=== PATIENT | female | born 1990 ===

== ENCOUNTER 2017-03-13 20:32 | Emergency (ER) | payer BC, OTHER ==
[2017-03-13 20:39] VITALS: BMI 20.5
[2017-03-13] MEDS ORDERED: PHENERGAN INJ 25 MG IV ONE ×2 (21:27→23:16)
[2017-03-13] MEDS ORDERED: DEMEROL INJ IVP ONE ×2 (21:27→22:36)
--- NOTE | 2017-03-13 21:31 | ED.ABDFE ---
HPI - Time seen Time seen: 21:28 - PCP Primary Care Physician: LOW RESENDIZ - HPI Comment HPI Comment: As below; persistent n/v/d/abd pain x 2-3 days; unable to keep anything down; went to [facility] earlier today with phenergan which helped some but returned after med wore off; longstanding type 1 dm with gastroparesis followed by Dr Knowles. - Complaint Chief Complaint:: ABD PAIN FOR A COUPLE DAYS, N/V SINCE THIS AM. HISTORY OF GASTROPORESIS. SEES FOR. - Source History Provided: Patient, Significant Other - Mode of arrival Mode of Arrival: Ambulatory - Timing Onset of Chief Complaint: 03/13/17 PMH - PMH Past Medical History: Yes Past Medical History: Diabetes, GERD Past Medical History Comment: GASTROPORESIS Past Surgical History: Yes Surgical History: Appendectomy, Past Surgical History Comment: PORT A CATH LEFT CHEST WA\\LL - Family History History of Family Medical Conditions: Yes Family Medical History: Diabetes Mellitus - Social History Does patient currently use any type of tobacco product: No Have you used tobacco products in the last 12 months: No Type of Tobacco Use: None Does any household member use tobacco: No Alcohol Use: None Do you use any recreational Drugs:: No Lives With: Spouse Lives Where: Home - infectious screening Have you traveled outside the country in the last 6 months?: No Isolation: Standard ROS - Review of Systems Constitutional: Weakness, Loss of Appetite Respiratoy: No Symptoms Reported Cardiovascular: No Symptoms Reported Gastrointestinal/Abdominal: See HPI, Abdominal Pain Neurological: No Symptoms Reported Integumentary: No Symptoms Reported PE - Vital Signs Vitals: Temperature 98.3 F Pulse Rate [Right Brachial] 118 Pulse Rate 110 Respiratory Rate 18 Blood Pressure [Left Arm] 136/85 Blood Pressure [Right Arm] 130/92 Blood Pressure 136/85 O2 Sat by Pulse Oximetry 100 - General Limitations: No Limitations General Appearance: Alert, In Distress (signficant discomfort, actively throwing up) - Head Head Exam: Normal Inspection - Chest Chest Inspection: Normal Inspection - Respiratory Respiratory Exam: Normal Lung Sounds Bilat Respiratory Exam: Bilateral Clear to Auscultation - Cardiovascular Cardiovascular Exam: Regular Rate, Normal Rhythm - Abdominal Exam Abdominal Exam: Soft, Tenderness Abdominal Tenderness: Diffuse - Rectal Rectal Exam: Deferred - Extremeties Extremities Exam: Normal Inspection Course - Reevaluation 1st: Improved (still w/"tightness" in her upper abd) ROR - Labs Reviewed Laboratory Results Reviewed?: Yes (cbc, cmp from [place] at 11am benign) - Diagnosis Discharge Problem: Diabetic gastroparesis associated with type 1 diabetes mellitus, Nausea and vomiting in adult patient - Discharge Plan Disposition: 01 HOME, SELF-CARE Condition: Stable - Follow ups/Referrals Follow ups/Referrals: NFD,None [Primary Care Provider] - 3 days DAYANA KNOWLES [STAFF PHYSICIAN] - 3 days - Instructions Instructions: Nausea and Vomiting, Adult, [id number]
[2017-03-13] MEDS ORDERED: DEMEROL INJ ONE ×2 (21:36→22:38)
[2017-03-13] MEDS ORDERED: PHENERGAN INJ 25 MG ONE ×2 (21:36→23:27)
[2017-03-13] MEDS ORDERED: NS 1000 ML 1,000 ML IV ONE ×2 (21:53→22:56)
[2017-03-13] MEDS ORDERED: NS 1000 ML 1,000 ML ONE ×2 (21:55→22:57)
[2017-03-13 23:26] VITALS: BP 130/92
== END 2017-03-14 00:18 | disposition home or self-care (01) ==
LOC: ER 20:32
DX: E11.43 Type 2 diabetes mellitus with diabetic autonomic (poly)neuropathy (principal); R11.2 Nausea with vomiting, unspecified
CPT/HCPCS: 96365; 96367; 96374; 96375; 99283; J2175; J2550

== ENCOUNTER 2017-09-03 22:52 | Inpatient (IN) | payer BC, OTHER ==
[2017-09-03 23:00] VITALS: BMI 23.8
[2017-09-03] MEDS ORDERED: ZOFRAN INJ 4 MG VIAL IVP ONE (23:10)
[2017-09-03] MEDS ORDERED: NS 1000 ML 1,000 ML IV ONE (23:11)
--- NOTE | 2017-09-03 23:11 | DR.GENAD ---
HPI - PCP Primary Care Physician: MARTÍN - Complaint/Symptoms Chief Complaint Doctors Comments: Patient presents with abdominal pain and vomitng not tolerating PO. She has a history of gastroparesis. Chief Complaint:: VOMITING SINCE TUESDAY NIGHT - Source History Provided: Patient - Mode of Arrival Mode of Arrival: Ambulatory - Timing Onset of Chief Complaint: 09/02/17 PMH - PMH Past Medical History: Yes Past Medical History: Diabetes, GERD Past Surgical History: Yes Surgical History: Appendectomy, Past Surgical History Comment: PAC - Family History History of Family Medical Conditions: Yes Family Medical History: Diabetes Mellitus - Social History Type of Tobacco Use: None Does any household member use tobacco: No Alcohol Use: None Do you use any recreational Drugs:: No Lives With: Family Lives Where: Home - infectious screening In the last 2 months have you had wt loss of >10#?: NO Have you had fever, night sweats or hemotysis?: No Have you traveled outside the country in the last 6 months?: No Isolation: Standard ROS - Review of Systems Eyes: No Symptoms Reported ENTM: No Symptoms Reported Respiratoy: No Symptoms Reported Cardiovascular: No Symptoms Reported Gastrointestinal/Abdominal: Abdominal Pain, Nausea, Vomiting Neurological: No Symptoms Reported Musculoskeletal: No Symptoms Reported Integumentary: Other (mid line surgical scar below the umbilicus) Hematologic/Lymphatic: No Symptoms Reported Endocrine: No Symptoms Reported Psychiatric: No Symptoms Reported All Other Systems: Reviewed and Negative PE - Vital Signs Vitals: Temperature 98.6 F Pulse Rate 124 Respiratory Rate 18 Blood Pressure [Left Arm] 136/85 Blood Pressure [Right Arm] 130/92 Blood Pressure 160/97 O2 Sat by Pulse Oximetry 100 - General Limitations: No Limitations General Appearance: Alert, In Distress - Head Head Exam: Normal Inspection, Atraumatic - Eyes Eye exam: Normal Appearance, PERRL, EOMI - ENT ENT Exam: Mucous Membranes Dry External Ear Exam: Normal External Inspection TM/Canal Exam: Bilateral Normal Nose Exam: Normal Nose Exam Mouth Exam: Normal Inspection Throat Exam: Normal Inspection - Neck Neck Exam: Normal Inspection - Chest Chest Inspection: Normal Inspection - Respiratory Respiratory Exam: Normal Lung Sounds Bilat Respiratory Exam: Bilateral Clear to Auscultation - Cardiovascular Cardiovascular Exam: Regular Rate, Normal Rhythm - Abdominal Exam Abdominal Exam: Normal Inspection Abdominal Tenderness: Diffuse - Extremities Extremities Exam: Normal Inspection, Full ROM - Back Back Exam: Normal Inspection, Full ROM - Neurologic Neurological Exam: Alert, Oriented X3, CN II-XII Intact - Psychiatric Psychiatric Exam: Normal Affect - Skin Skin Exam: Warm, Dry, Intact, Normal Color Course - Reevaluation 1st: Unchanged ROR - Labs Reviewed Result Diagrams: 09/03/17 23:34 09/03/17 23:34 Laboratory: WBC 7.9 X10^3/uL (3.6-10.0) 09/03/17 23:34 RBC 5.02 X10^6/uL (3.5-5.4) 09/03/17 23:34 Hgb 11.5 g/dL (12.0-16.0) L 09/03/17 23:34 Hct 36.0 % (36.0-47.0) 09/03/17 23:34 MCV 71.6 fL (80.0-100.0) L 09/03/17 23:34 MCH 22.9 pg (27.0-34.0) L 09/03/17 23:34 MCHC 31.9 g/dL (33.0-35.0) L 09/03/17 23:34 RDW 17.1 % (11.6-16.5) H 09/03/17 23:34 Plt Count 306 X10^3/uL (150.0-450.0) 09/03/17 23:34 Plt Count Comment Adequate (ADEQUATE) 09/03/17 23:34 MPV 8.2 fL (7.4-11.0) 09/03/17 23:34 Neut % 93.2 % (42.0-75.0) H 09/03/17 23:34 Lymph % 4.7 % (21.0-51.0) L 09/03/17 23:34 [place] % 1.7 % (0.0-13.0) 09/03/17 23:34 Eos % 0.0 % (0.9-2.9) L 09/03/17 23:34 Baso % 0.4 % (0.2-1.0) 09/03/17 23:34 Neut # 7.4 x10^3/uL (2.2-4.8) H 09/03/17 23:34 Lymph # 0.4 X10^3/uL (1.3-2.9) L 09/03/17 23:34 [place] # 0.1 x10^3/uL (0.3-0.8) L 09/03/17 23:34 Eos # 0.0 x10^3/uL (0.0-0.2) 09/03/17 23:34 Baso # 0.0 X10^3/uL (0.0-0.1) 09/03/17 23:34 Absolute Nucleated RBC 0.1 /100WBC 09/03/17 23:34 Total Counted 100 09/03/17 23:34 Neutrophils % (Manual) 93 % (39-76) H 09/03/17 23:34 Band Neutrophils % 1 % (0-10) 09/03/17 23:34 Lymphocytes % (Manual) 5 % (13-43) L 09/03/17 23:34 Monocytes % (Manual) 1 % (4-9) L 09/03/17 23:34 Plt Morphology Comment Normal (NORMAL) 09/03/17 23:34 RBC Morphology Abnormal (NORMAL) A 09/03/17 23:34 Hypochromasia 1+ A 09/03/17 23:34 Anisocytosis Slight A 09/03/17 23:34 Microcytosis 1+ A 09/03/17 23:34 Sodium 138 mmol/L (136-145) 09/03/17 23:34 Corrected Sodium 140 mmol/L (136-145) 09/03/17 23:34 Potassium 3.7 mmol/L (3.5-5.1) 09/03/17 23:34 Chloride 100 mmol/L (98-107) 09/03/17 23:34 Carbon Dioxide 25.5 mmol/L (21-32) 09/03/17 23:34 BUN 10 mg/dL (7-18) 09/03/17 23:34 Creatinine 0.81 mg/dL (0.55-1.02) 09/03/17 23:34 Est GFR (MDRD) Af Amer > 60 (>60) 09/03/17 23:34 Est GFR (MDRD) Non-Af > 60 (>60) 09/03/17 23:34 Glucose 195 mg/dL (65-99) H 09/03/17 23:34 Hemoglobin A1c 8.8 % (4.5-6.2) H 09/03/17 23:34 Calcium 9.0 mg/dL (8.5-10.1) 09/03/17 23:34 Corrected Calcium TNP 09/03/17 23:34 Total Bilirubin 1.00 mg/dL (0.2-1.0) 09/03/17 23:34 AST 21 Units/L (15-37) 09/03/17 23:34 ALT 21 Units/L (12-78) 09/03/17 23:34 Alkaline Phosphatase 104 Units/L (46-116) 09/03/17 23:34 Total Protein 8.2 g/dL (6.4-8.2) 09/03/17 23:34 Albumin 4.2 g/dL (3.4-5.0) 09/03/17 23:34 Globulin 4.0 g/dL (2.5-4.5) 09/03/17 23:34 Albumin/Globulin Ratio 1.1 Ratio (1.1-2.1) 09/03/17 23:34 - Diagnosis Discharge Problem: Gastroparesis due to DM - Discharge Plan Condition: Stable - Follow ups/Referrals Follow ups/Referrals: LOW RESENDIZ [Primary Care Provider] - 3 days - Instructions
[2017-09-03] MEDS ORDERED: PHENERGAN INJ 25 MG IV ONE (23:18)
[2017-09-03] MEDS ORDERED: DILAUDID INJ IVP ONE (23:37)
[2017-09-03] MEDS ORDERED: DILAUDID INJ ONE (23:38)
[2017-09-03] MEDS ORDERED: NS 1000 ML 1,000 ML ONE (23:38)
[2017-09-03] MEDS ORDERED: PHENERGAN INJ 25 MG ONE (23:38)
[2017-09-03 23:48] LABS: BASOPHILS % (AUTO) 0.4 % (0.2-1.0); HEMOGLOBIN 11.5 g/dL (12.0-16.0); LYMPHOCYTES # (AUTO) 0.4 X10^3/uL (1.3-2.9); LYMPHOCYTES % (AUTO) 4.7 % (21.0-51.0); MEAN CORPUSCULAR HEMOGLOBIN 22.9 pg (27.0-34.0); MEAN CORPUSCULAR HGB CONC 31.9 g/dL (33.0-35.0); MEAN CORPUSCULAR VOLUME 71.6 fL (80.0-100.0); MEAN PLATELET VOLUME 8.2 fL (7.4-11.0); MONOCYTES # (AUTO) 0.1 x10^3/uL (0.3-0.8); MONOCYTES % (AUTO) 1.7 % (0.0-13.0); NEUTROPHILS # (AUTO) 7.4 x10^3/uL (2.2-4.8); NEUTROPHILS % (AUTO) 93.2 % (42.0-75.0); PLATELET COUNT 306 X10^3/uL (150.0-450.0); RED BLOOD COUNT 5.02 X10^6/uL (3.5-5.4); RED CELL DISTRIBUTION WIDTH 17.1 % (11.6-16.5); WHITE BLOOD COUNT 7.9 X10^3/uL (3.6-10.0)
[2017-09-03 23:54] LABS: HEMOGLOBIN A1C 8.8 % (4.5-6.2)
[2017-09-03 23:55] LABS: ALANINE AMINOTRANSFERASE 21 Units/L (12-78); ALBUMIN 4.2 g/dL (3.4-5.0); ALKALINE PHOSPHATASE 104 Units/L (46-116); ASPARTATE AMINO TRANSFERASE 21 Units/L (15-37); BLOOD UREA NITROGEN 10 mg/dL (7-18); CARBON DIOXIDE 25.5 mmol/L (21-32); CHLORIDE 100 mmol/L (98-107); COR NA(FOR HYPERGLY) 140 mmol/L (136-145); CREATININE 0.81 mg/dL (0.55-1.02); SODIUM 138 mmol/L (136-145); TOTAL PROTEIN 8.2 g/dL (6.4-8.2); eGFR BLACK RACES > 60 (>60); eGFR NON BLACK RACES > 60 (>60)
[2017-09-04 00:07] LABS: ANISOCYTOSIS SLIGHT; BAND NEUTROPHILS % 1 % (0-10); HYPOCHROMASIA 1+; MICROCYTOSIS 1+; PLATELET MORPHOLOGY COMMENT NORMAL (NORMAL)
[2017-09-04] MEDS ORDERED: ZOFRAN INJ 4 MG VIAL IVP ONE ×2 (00:23→02:15)
[2017-09-04] MEDS ORDERED: ZOFRAN INJ 4 MG VIAL ONE (02:08)
[2017-09-04] MEDS ORDERED: DILAUDID INJ IVP ONE (02:16)
[2017-09-04] MEDS ORDERED: DILAUDID INJ ONE (02:19)
[2017-09-04] MEDS ORDERED: ZOFRAN INJ 4 MG VIAL IVP PRN ×2 (03:11→12:21)
--- NOTE | 2017-09-04 03:17 | RAD ---
AP Chest Indication: Vomiting Comparison: 01/06/2017 Findings: Stable positioning of left chest wall MediPort with its tip terminating within the upper SVC. The trachea is midline. The cardiac silhouette is unremarkable. The lungs are clear without focal i nfiltrate or effusion. The bony thorax is unremarkable. IMPRESSION: 1. No acute cardiopulmonary abnormality. Reported By:
[2017-09-04] MEDS ORDERED: NS 1000 ML 1,000 ML ONE ×2 (03:18→11:11)
[2017-09-04] MEDS: POTASSIUM CHLORIDE IV SCH ×4 (03:21→11:26)
[2017-09-04] MEDS: NS IV SCH ×4 (03:21→11:26)
[2017-09-04] MEDS ORDERED: NS 100 ML IV 100 ML IV ONE (03:44)
[2017-09-04] MEDS ORDERED: PROTONIX INJ 40 MG VIAL ONE (03:45)
[2017-09-04] MEDS: PROTONIX INJ 40 MG VIAL 80 MG in NS 100 ML IV 80 ML IV SCH ×4 (04:08→23:49)
[2017-09-04 05:39] LABS: BILIRUBIN,URINE NEGATIVE (NEGATIVE); BLOOD/HEMOGLOBIN,URINE 5+ (NEGATIVE); GLUCOSE, URINE 4+ (NEGATIVE); KETONES,URINE 4+ (NEGATIVE); LEUKOCYTE ESTERASE ,URINE NEGATIVE (NEGATIVE); NITRITES,URINE NEGATIVE (NEGATIVE); PROTEIN,URINE 2+ (NEGATIVE); UROBILINOGEN,URINE NORMAL (NORMAL)
[2017-09-04 05:46] LABS: COLOR,URINE YELLOW (YELLOW)
[2017-09-04 05:47] LABS: APPEARANCE,URINE CLEAR (CLEAR); BACTERIA,URINE TRACE /HPF (NEGATIVE); RBC,URINE 0-3 /HPF (NEGATIVE); SQUAMOUS EPITHELIAL CELL,UR FEW /HPF (NEGATIVE)
[2017-09-04] MEDS: HumuLIN R SUBCUT PRN ×3 (06:11→17:29)
[2017-09-04] MEDS: PHENERGAN INJ 25 MG IV PRN ×3 (07:32→23:50)
[2017-09-04] MEDS: DILAUDID INJ IVP PRN ×4 (07:39→21:13)
[2017-09-04] MEDS: NS 1000 ML 1,000 ML IV SCH ×3 (11:28→23:51)
[2017-09-04] MEDS ORDERED: ZOFRAN INJ 4 MG VIAL IVP SCH (14:00)
[2017-09-04] MEDS: ZOFRAN INJ 4 MG VIAL IVP PRN (21:15)
[2017-09-05] MEDS: ZOFRAN INJ 4 MG VIAL IVP PRN ×2 (01:30→05:38)
[2017-09-05] MEDS: DILAUDID INJ IVP PRN ×7 (01:40→21:22)
[2017-09-05 04:39] LABS: BASOPHILS # (AUTO) 0.1 X10^3/uL (0.0-0.1); BASOPHILS % (AUTO) 0.6 % (0.2-1.0); EOSINOPHILS % (AUTO) 0.1 % (0.9-2.9); HEMATOCRIT 28.4 % (36.0-47.0); LYMPHOCYTES # (AUTO) 1.1 X10^3/uL (1.3-2.9); LYMPHOCYTES % (AUTO) 12.6 % (21.0-51.0); MEAN CORPUSCULAR HEMOGLOBIN 22.9 pg (27.0-34.0); MEAN CORPUSCULAR HGB CONC 31.8 g/dL (33.0-35.0); MEAN PLATELET VOLUME 8.4 fL (7.4-11.0); MONOCYTES # (AUTO) 0.7 x10^3/uL (0.3-0.8); MONOCYTES % (AUTO) 7.7 % (0.0-13.0); NEUTROPHILS # (AUTO) 7.2 x10^3/uL (2.2-4.8); PLATELET COUNT 252 X10^3/uL (150.0-450.0); RED BLOOD COUNT 3.94 X10^6/uL (3.5-5.4); RED CELL DISTRIBUTION WIDTH 16.9 % (11.6-16.5); WHITE BLOOD COUNT 9.1 X10^3/uL (3.6-10.0)
[2017-09-05 04:43] LABS: ALANINE AMINOTRANSFERASE 15 Units/L (12-78); ALBUMIN 3.4 g/dL (3.4-5.0); ALKALINE PHOSPHATASE 79 Units/L (46-116); ASPARTATE AMINO TRANSFERASE 11 Units/L (15-37); BLOOD UREA NITROGEN 10 mg/dL (7-18); CALCIUM 7.9 mg/dL (8.5-10.1); CARBON DIOXIDE 25.6 mmol/L (21-32); CHLORIDE 104 mmol/L (98-107); CREATININE 0.77 mg/dL (0.55-1.02); SODIUM 139 mmol/L (136-145); TOTAL PROTEIN 6.5 g/dL (6.4-8.2); eGFR BLACK RACES > 60 (>60); eGFR NON BLACK RACES > 60 (>60)
[2017-09-05 05:19] LABS: PLATELET MORPHOLOGY COMMENT NORMAL (NORMAL)
[2017-09-05 05:20] LABS: ANISOCYTOSIS SLIGHT; HYPOCHROMASIA 1+; MICROCYTOSIS 1+
[2017-09-05] MEDS: NS 1000 ML 1,000 ML IV SCH (07:08)
[2017-09-05] MEDS ORDERED: D50W ABBOJECT SYR IV ONE ×2 (08:10→08:15)
[2017-09-05] MEDS ORDERED: MAGNESIUM SULFATE 1 GM/100 mL PREMIX 1 GM/100 ML BAG IV PRN (08:56)
[2017-09-05] MEDS ORDERED: MAG-OX TAB PO PRN (08:56)
[2017-09-05] MEDS ORDERED: K-RIDER 10 MEQ/NS 100 ML 10 MEQ/100 ML BAG IV PRN (08:56)
[2017-09-05] MEDS ORDERED: K-LYTE EFFERVESCENT PO PRN (08:56)
[2017-09-05] MEDS: PROTONIX INJ 40 MG VIAL 80 MG in NS 100 ML IV 80 ML IV SCH ×2 (10:20→22:47)
[2017-09-05] MEDS: PHENERGAN INJ 25 MG IV PRN ×2 (11:47→18:16)
[2017-09-05] MEDS ORDERED: D50W ABBOJECT SYR IV PRN ×2 (12:01→13:00)
[2017-09-05] MEDS: D5 NS 1000 ML 1,000 ML IV SCH ×2 (13:18→21:24)
[2017-09-05] MEDS: HumuLIN R SUBCUT PRN (21:21)
[2017-09-06] MEDS: PHENERGAN INJ 25 MG IV PRN ×3 (00:21→18:11)
[2017-09-06] MEDS: DILAUDID INJ IVP PRN ×7 (00:21→21:11)
[2017-09-06] MEDS: D5 NS 1000 ML 1,000 ML IV SCH ×4 (03:00→20:09)
[2017-09-06] MEDS: PROTONIX INJ 40 MG VIAL 80 MG in NS 100 ML IV 80 ML IV SCH ×3 (06:04→20:08)
[2017-09-06 06:54] LABS: ALANINE AMINOTRANSFERASE 14 Units/L (12-78); ALBUMIN 2.9 g/dL (3.4-5.0); ALKALINE PHOSPHATASE 74 Units/L (46-116); ASPARTATE AMINO TRANSFERASE 12 Units/L (15-37); BLOOD UREA NITROGEN 4 mg/dL (7-18); CALCIUM 7.8 mg/dL (8.5-10.1); CARBON DIOXIDE 25.1 mmol/L (21-32); CHLORIDE 107 mmol/L (98-107); COR CA(FOR HYPOALB) 8.7 mg/dL (8.5-10.1); CREATININE 0.66 mg/dL (0.55-1.02); MAGNESIUM 1.7 mg/dL (1.7-2.9); SODIUM 140 mmol/L (136-145); TOTAL PROTEIN 5.7 g/dL (6.4-8.2); eGFR BLACK RACES > 60 (>60); eGFR NON BLACK RACES > 60 (>60)
[2017-09-06 06:57] LABS: BASOPHILS % (AUTO) 0.5 % (0.2-1.0); EOSINOPHILS # (AUTO) 0.1 x10^3/uL (0.0-0.2); EOSINOPHILS % (AUTO) 0.8 % (0.9-2.9); HEMATOCRIT 27.1 % (36.0-47.0); HEMOGLOBIN 8.7 g/dL (12.0-16.0); LYMPHOCYTES # (AUTO) 1.1 X10^3/uL (1.3-2.9); LYMPHOCYTES % (AUTO) 15.9 % (21.0-51.0); MEAN CORPUSCULAR HEMOGLOBIN 23.1 pg (27.0-34.0); MEAN CORPUSCULAR HGB CONC 32.1 g/dL (33.0-35.0); MEAN PLATELET VOLUME 8.4 fL (7.4-11.0); MONOCYTES # (AUTO) 0.7 x10^3/uL (0.3-0.8); MONOCYTES % (AUTO) 11.3 % (0.0-13.0); NEUTROPHILS # (AUTO) 4.7 x10^3/uL (2.2-4.8); NEUTROPHILS % (AUTO) 71.5 % (42.0-75.0); PLATELET COUNT 219 X10^3/uL (150.0-450.0); RED BLOOD COUNT 3.77 X10^6/uL (3.5-5.4); RED CELL DISTRIBUTION WIDTH 16.5 % (11.6-16.5); WHITE BLOOD COUNT 6.6 X10^3/uL (3.6-10.0)
[2017-09-06 07:07] LABS: HYPOCHROMASIA 1+; PLATELET MORPHOLOGY COMMENT NORMAL (NORMAL)
--- NOTE | 2017-09-06 16:49 | DR.H&P ---
H&P - History & Physical for Day of: H&P Date: 09/04/17 - Chief Complaint Chief Complaint: nausea and vomiting, abdominal pain - Allergies Allergies/Adverse Reactions: Allergies Allergy/AdvReac Type Severity Reaction Status Date / Time meperidine [From Demerol] AdvReac Verified 09/03/17 22:54 metoclopramide [From Reglan] AdvReac Verified 09/03/17 22:54 - History of Present Illness History of Present Illness: is a 27 year old patient of Regina alford who presented to the emergency room with reports of abdominal pain, nausea, and vomiting. Patient reports symptoms started Tuesday and she has been unable to tolerate oral liquids and food since. Patient reported a history of gastroparesis and type 1 Diabetes. On Examination, lungs are clear to auscultation. Abdomen is soft, round, noted with diffuse abdominal tenderness on palpation. Normal bowel sounds noted in all quadrants. On arrival to the ER, vitals were 98.6, 124, 18, 100% RA, 160/97. A OTBS was obtained and reported 394. Labs and chest xray were obtained. Abnormal lab values include the following: Hgb 11.5, MCV 71.6, MCH 22.9, MCHC 31.9, RDW 17.1, Glucose 195, Hgb A1c 8.8, OTBS: 394, 399. Urinalysis reported: Protein 2+, Glucose 4+, Ketones 4+ , Occult Blood 5+, RBC 0-3, WBC -3, Bacteria Trace. Chest X-Ray reported: No acute cardiopulmonary abnormality. Only mild improvement in pain and nausea was noted after being given IV dilaudid, Zofran, and Phenergan in the ER. We admitted patient for further treatment and evaluation. She was started on D5NS at 150ml/hr, a protonix drip, dilaudid 2mg iv q3h prn pain, and Phenergan 12.5mg IV nausea, and Zofran 4mg IV q4h prn nausea. We planned to follow up with am labs and continue to monitor patient. - Past Medical History Past Medical History: Diabetes, GERD - Past Surgical History Surgical History: Appendectomy, Additional Surgical History: port a cath - Family History Family Medical History: Diabetes Mellitus - Social History Type of Tobacco Use: None Does any household member use tobacco: No Alcohol Use: None Drug Use: None - Medications Home Medications: Insulin R (Regular) [Humulin R] 1 unit SC ACHS 09/04/17 [History Confirmed 09/04] Oxycodone HCl Contr Release [OXYCONTIN CR 10 MG *] 10 mg PO HS 09/04/17 [ History Confirmed 09/04/17] Pantoprazole Sodium 40 mg [Protonix Tab 40 mg] 40 mg PO BID 09/04/17 [History Confirmed 09/04/17] Promethazine HCl 25 mg PO Q6HR PRN 09/04/17 [History Confirmed 09/04/17] - Review of Systems Constitutional: Weakness. denies: Fever, Chills, Sweats Eyes: No Symptoms Reported. denies: Pain, Vision Change ENT: No Symptoms Reported. denies: Ear Pain, Ear Discharge, Nose Pain, Nose Discharge, Throat Swelling Respiratory: No Symptoms Reported. denies: Cough, Shortness of Breath, Hemoptysis, Sputum, Wheezing Cardiovascular: No Symptoms Reported. denies: Chest Pain, Palpitations, Edema Gastrointestinal: Nausea, Vomiting, Abdominal Pain. denies: Diarrhea, Melena, Hematochezia Genitourinary: No Symptoms Reported. denies: Dysuria, Incontinence, Hematuria, Retention Musculoskeletal: No Symptoms Reported Skin: No Symptoms Reported. denies: Jaundice, Bruising, Wound, Ecchymosis Neurological: Weakness. denies: Numbness, Confusion, Seizures - Physical Exam Vital Signs: Temperature 98.2 F Pulse Rate [Right Brachial] 97 Pulse Rate [Left] 101 Pulse Rate 124 Respiratory Rate 16 Blood Pressure [Left Arm] 116/75 Blood Pressure [Right Arm] 109/76 Blood Pressure 160/97 O2 Sat by Pulse Oximetry 98 Oriented: Normal. negative: Not Oriented, Unable to test Eyes: Normal. negative: Blurred Vision, Diplopia, Discharge, Photophobia Ear: Normal. negative: Swelling, Ecchymosis, Hemotypanum Nose: Normal. negative: Injected, Discharge Throat: Normal. negative: Tonsillar Hypertrophy Respiratory: Clear Throughout Cardiovascular: Normal, Tachycardia. negative: Murmur, Edema : Normal. negative: Hematuria, Discharge, Testicular Pain, Bleeding Auscultation: Bowel Sounds: Increased Palpation: Normal Tenderness: Diffuse. negative: Rebound, Guarding, Rigidity Skin: Normal. negative: Wound, Bruising, Ecchymosis Musculoskeletal: Normal Psychiatric: Normal Mood Description: Calm Affect: Normal Speech Pattern: Clear - Assessment/Plan (1) Gastroparesis due to DM Status: Acute Plan: D5NS AT 150ML/HR, PHENERGAN 12.5MG IVP PRN, ZOFRAN 4MG IV PRN, PROTONIX DRIP, CONTINUE TO MONITOR (2) Diabetes mellitus type I Qualifiers: Diabetes mellitus complication status: with unspecified complications Qualified Code(s): E10.8 - Type 1 diabetes mellitus with unspecified complications Status: Chronic Plan: MONITOR OTBS, HUMULIN R SLIDING SCALE, CONTINUE TO MONITOR
[2017-09-06] MEDS: HumuLIN R SUBCUT PRN (17:12)
[2017-09-06] MEDS: ZOFRAN INJ 4 MG VIAL IVP PRN (21:12)
[2017-09-07] MEDS: PHENERGAN INJ 25 MG IV PRN ×3 (00:29→13:58)
[2017-09-07] MEDS: D5 NS 1000 ML 1,000 ML IV SCH ×2 (00:29→07:48)
[2017-09-07] MEDS: DILAUDID INJ IVP PRN ×4 (00:29→11:26)
[2017-09-07] MEDS: PROTONIX INJ 40 MG VIAL 80 MG in NS 100 ML IV 80 ML IV SCH ×2 (02:47→05:26)
[2017-09-07] MEDS: ZOFRAN INJ 4 MG VIAL IVP PRN (04:03)
[2017-09-07 06:34] LABS: BASOPHILS % (AUTO) 0.5 % (0.2-1.0); EOSINOPHILS # (AUTO) 0.1 x10^3/uL (0.0-0.2); EOSINOPHILS % (AUTO) 2.2 % (0.9-2.9); HEMATOCRIT 27.9 % (36.0-47.0); LYMPHOCYTES # (AUTO) 0.8 X10^3/uL (1.3-2.9); LYMPHOCYTES % (AUTO) 13.3 % (21.0-51.0); MEAN CORPUSCULAR HGB CONC 32.3 g/dL (33.0-35.0); MEAN CORPUSCULAR VOLUME 71.2 fL (80.0-100.0); MEAN PLATELET VOLUME 7.8 fL (7.4-11.0); MONOCYTES # (AUTO) 0.6 x10^3/uL (0.3-0.8); MONOCYTES % (AUTO) 9.5 % (0.0-13.0); NEUTROPHILS # (AUTO) 4.6 x10^3/uL (2.2-4.8); NEUTROPHILS % (AUTO) 74.5 % (42.0-75.0); PLATELET COUNT 221 X10^3/uL (150.0-450.0); RED BLOOD COUNT 3.91 X10^6/uL (3.5-5.4); RED CELL DISTRIBUTION WIDTH 16.8 % (11.6-16.5); WHITE BLOOD COUNT 6.1 X10^3/uL (3.6-10.0)
[2017-09-07 06:46] LABS: ALANINE AMINOTRANSFERASE 14 Units/L (12-78); ALBUMIN 3.1 g/dL (3.4-5.0); ALKALINE PHOSPHATASE 88 Units/L (46-116); ASPARTATE AMINO TRANSFERASE 10 Units/L (15-37); BLOOD UREA NITROGEN 3 mg/dL (7-18); CALCIUM 7.6 mg/dL (8.5-10.1); CARBON DIOXIDE 29.2 mmol/L (21-32); CHLORIDE 106 mmol/L (98-107); COR CA(FOR HYPOALB) 8.3 mg/dL (8.5-10.1); CREATININE 0.57 mg/dL (0.55-1.02); SODIUM 141 mmol/L (136-145); TOTAL PROTEIN 6.2 g/dL (6.4-8.2); eGFR BLACK RACES > 60 (>60); eGFR NON BLACK RACES > 60 (>60)
[2017-09-07 06:51] LABS: HYPOCHROMASIA 1+; PLATELET MORPHOLOGY COMMENT NORMAL (NORMAL)
[2017-09-07] MEDS: HumuLIN R SUBCUT PRN (12:57)
[2017-09-07 13:15] VITALS: BP 140/88
--- NOTE | 2017-09-07 21:07 | PCM.PROG ---
Progress Note - Progress Note for Day of Date: 09/05/17 - Subjective Subjective: WAS ADMITTED FOR DIABETIC GASTROPARESIS. TODAY, SHE IS ALERT AND ORIENTED, LYING IN BED ON MORNING ROUNDS. SHE IS NOTED WITH COMPLAINTS OF NAUSEA AND DIFFUSE ABDOMINAL PAIN. ON EXAMINATION, LUNGS ARE NOTED CLEAR TO AUSCULTATION. ABDOMEN IS ROUND, SOFT, AND NOTED WITH DIFFUSE TENDERNESS TO PALPATION. PATIENT REPORTS THAT SHE HAS VOMITED SEVERAL TIMES THIS MORNING AND THROUGHOUT THE NIGHT. THERE IS BILIOUS EMESIS NOTED IN CONTAINER ON BED. HER VITAL SIGNS THIS MORNING ARE 97.8-98-18-100%-106/69. ABNORMAL LAB VALUES THIS MORNING INCLUDE THE FOLLOWING: HGB 9.0, HCT 28.4, GLUCOSE 106, CALCIUM 7.9, TOTAL BILI 1.20, AST 11. STAFF REPORTS THAT PATIENT'S BLOOD SUGAR DROPPED TO 22 AT 0800 THIS MORNING. PATIENT HAS NOT BEEN EATING DUE TO PERSISTENT NAUSEA AND VOMITING. ONE AMP OF DEXTROSE 50% WAS GIVEN. BLOOD SUGAR INCRESED TO 83. TODAY, WE WILL ALLOW PATIENT TO HAVE SIPS OF WATER AND ICE CHIPS. IF NAUSEA AND VOMITING SUBSIDES, WE WILL START PATIENT ON A SOFT DIABETIC DIET. OTHERWISE, WE WILL CONTINUE WITH CURRENT PLAN OF CARE TODAY. WE PLAN TO RECHECK AM LABS AND CONTINUE TO MONITOR PATIENT. - Past Medical Family Social History Past Med/Fam/Surg Hx: No changes since H&P Allergies: Allergies meperidine [From Demerol] Adverse Reaction (Verified 09/03/17 22:54) metoclopramide [From Reglan] Adverse Reaction (Verified 09/03/17 22:54) - Review of Systems ROS: No change since H&P - Vital Signs and I&O's Vital Signs: Temperature 98.0 F Pulse Rate [Right Brachial] 114 Pulse Rate [Left] 101 Pulse Rate 124 Respiratory Rate 16 Blood Pressure [Left Arm] 146/91 Blood Pressure [Right Arm] 140/88 Blood Pressure 160/97 O2 Sat by Pulse Oximetry 97 Intake and Output: Intake & Output 09/05/17 09/06/17 09/07/17 09/08/17 11:59 11:59 11:59 11:59 Intake Total 3411 904 2060 360 Output Total 1000 Balance 2411 904 2060 360 - Physical Exam Oriented: Normal. negative: Not Oriented, Unable to test Eyes: Normal. negative: Blurred Vision, Diplopia, Discharge, Photophobia Ear: Normal. negative: Swelling, Ecchymosis, Hemotypanum Nose: Normal. negative: Injected, Discharge Throat: Normal. negative: Tonsillar Hypertrophy Respiratory: Normal Cardiovascular: Normal, Tachycardia. negative: Murmur, Edema : Normal. negative: Hematuria, Discharge, Testicular Pain, Bleeding Auscultation: Bowel Sounds: Increased Palpation: Normal Tenderness: Diffuse. negative: Rebound, Guarding, Rigidity Skin: Normal. negative: Wound, Bruising, Ecchymosis Musculoskeletal: Normal Psychiatric: Normal Mood Description: Calm Affect: Normal Speech Pattern: Clear - Laboratory and Diagnostics Result Diagrams: 09/07/17 06:15 09/07/17 06:15 Labs: Laboratory WBC 6.1 X10^3/uL (3.6-10.0) 09/07/17 06:15 RBC 3.91 X10^6/uL (3.5-5.4) 09/07/17 06:15 Hgb 9.0 g/dL (12.0-16.0) L 09/07/17 06:15 Hct 27.9 % (36.0-47.0) L 09/07/17 06:15 MCV 71.2 fL (80.0-100.0) L 09/07/17 06:15 MCH 23.0 pg (27.0-34.0) L 09/07/17 06:15 MCHC 32.3 g/dL (33.0-35.0) L 09/07/17 06:15 RDW 16.8 % (11.6-16.5) H 09/07/17 06:15 Plt Count 221 X10^3/uL (150.0-450.0) 09/07/17 06:15 Plt Count Comment Adequate (ADEQUATE) 09/07/17 06:15 MPV 7.8 fL (7.4-11.0) 09/07/17 06:15 Neut % 74.5 % (42.0-75.0) 09/07/17 06:15 Lymph % 13.3 % (21.0-51.0) L 09/07/17 06:15 [place] % 9.5 % (0.0-13.0) 09/07/17 06:15 Eos % 2.2 % (0.9-2.9) 09/07/17 06:15 Baso % 0.5 % (0.2-1.0) 09/07/17 06:15 Neut # 4.6 x10^3/uL (2.2-4.8) 09/07/17 06:15 Lymph # 0.8 X10^3/uL (1.3-2.9) L 09/07/17 06:15 [place] # 0.6 x10^3/uL (0.3-0.8) 09/07/17 06:15 Eos # 0.1 x10^3/uL (0.0-0.2) 09/07/17 06:15 Baso # 0.0 X10^3/uL (0.0-0.1) 09/07/17 06:15 Absolute Nucleated RBC 0.0 /100WBC 09/07/17 06:15 Total Counted 100 09/03/17 23:34 Neutrophils % (Manual) 93 % (39-76) H 09/03/17 23:34 Band Neutrophils % 1 % (0-10) 09/03/17 23:34 Lymphocytes % (Manual) 5 % (13-43) L 09/03/17 23:34 Monocytes % (Manual) 1 % (4-9) L 09/03/17 23:34 Plt Morphology Comment Normal (NORMAL) 09/07/17 06:15 RBC Morphology Abnormal (NORMAL) A 09/07/17 06:15 Hypochromasia 1+ A 09/07/17 06:15 Anisocytosis Slight A 09/05/17 03:30 Microcytosis 1+ A 09/05/17 03:30 Sodium 141 mmol/L (136-145) 09/07/17 06:15 Corrected Sodium TNP 09/07/17 06:15 Potassium 3.3 mmol/L (3.5-5.1) L 09/07/17 06:15 Chloride 106 mmol/L (98-107) 09/07/17 06:15 Carbon Dioxide 29.2 mmol/L (21-32) 09/07/17 06:15 BUN 3 mg/dL (7-18) L 09/07/17 06:15 Creatinine 0.57 mg/dL (0.55-1.02) 09/07/17 06:15 Est GFR (MDRD) Af Amer > 60 (>60) 09/07/17 06:15 Est GFR (MDRD) Non-Af > 60 (>60) 09/07/17 06:15 Glucose 74 mg/dL (65-99) 09/07/17 06:15 POC Glucose (mg/dL) 272 mg/dL (65-99) H 09/07/17 13:55 Hemoglobin A1c 8.8 % (4.5-6.2) H 09/03/17 23:34 Calcium 7.6 mg/dL (8.5-10.1) L 09/07/17 06:15 Corrected Calcium 8.3 mg/dL (8.5-10.1) L 09/07/17 06:15 Magnesium 1.7 mg/dL (1.7-2.9) 09/06/17 05:49 Total Bilirubin 0.60 mg/dL (0.2-1.0) 09/07/17 06:15 AST 10 Units/L (15-37) L 09/07/17 06:15 ALT 14 Units/L (12-78) 09/07/17 06:15 Alkaline Phosphatase 88 Units/L (46-116) 09/07/17 06:15 Total Protein 6.2 g/dL (6.4-8.2) L 09/07/17 06:15 Albumin 3.1 g/dL (3.4-5.0) L 09/07/17 06:15 Globulin 3.1 g/dL (2.5-4.5) 09/07/17 06:15 Albumin/Globulin Ratio 1.0 Ratio (1.1-2.1) L 09/07/17 06:15 Specimen Type Clean catch urine 09/04/17 05:11 Urine Color Yellow (YELLOW) 09/04/17 05:11 Urine Appearance Clear (CLEAR) 09/04/17 05:11 Urine pH 6.0 (5.0 - 8.0) 09/04/17 05:11 Ur Specific [place] 1.015 (1.000-1.030) 09/04/17 05:11 Urine Protein 2+ (NEGATIVE) 09/04/17 05:11 Urine Glucose (UA) 4+ (NEGATIVE) 09/04/17 05:11 Urine Ketones 4+ (NEGATIVE) 09/04/17 05:11 Urine Occult Blood 5+ (NEGATIVE) 09/04/17 05:11 Urine Nitrite Negative (NEGATIVE) 09/04/17 05:11 Urine Bilirubin Negative (NEGATIVE) 09/04/17 05:11 Urine Urobilinogen Normal (NORMAL) 09/04/17 05:11 Ur Leukocyte Esterase Negative (NEGATIVE) 09/04/17 05:11 Urine RBC 0-3 /HPF (NEGATIVE) 09/04/17 05:11 Urine WBC 0-3 /HPF (NEGATIVE) 09/04/17 05:11 Ur Squamous Epith Cells Few /HPF (NEGATIVE) 09/04/17 05:11 Urine Bacteria Trace /HPF (NEGATIVE) 09/04/17 05:11 Ur Culture Indicated? No/not indicated 09/04/17 05:11 - Plan (1) Gastroparesis due to DM Status: Acute Plan: D5NS AT 150ML/HR, PHENERGAN 12.5MG IVP PRN, ZOFRAN 4MG IV PRN, PROTONIX DRIP, CONTINUE TO MONITOR (2) Diabetes mellitus type I Status: Chronic Qualifiers: Diabetes mellitus complication status: with unspecified complications Qualified Code(s): E10.8 - Type 1 diabetes mellitus with unspecified complications Plan: MONITOR OTBS, HUMULIN R SLIDING SCALE, CONTINUE TO MONITOR
--- NOTE | 2017-09-07 21:20 | PCM.PROG ---
Progress Note - Progress Note for Day of Date: 09/06/17 - Subjective Subjective: WAS ADMITTED FOR DIABETIC GASTROPARESIS. TODAY, SHE IS ALERT AND ORIENTED, LYING IN BED ON MORNING ROUNDS. SHE CONTINUES WITH COMPLAINTS OF NAUSEA AND DIFFUSE ABDOMINAL PAIN. ON EXAMINATION, LUNGS ARE NOTED CLEAR TO AUSCULTATION. ABDOMEN IS ROUND, SOFT, AND NOTED WITH DIFFUSE TENDERNESS TO PALPATION. PATIENT REPORTS THAT SHE VOMITING HAS SUBSIDED, BUT SHE CONTINUES WITH NAUSEA. HER VITAL SIGNS THIS MORNING ARE 97.1-501-34-100%-140 /84. ABNORMAL LAB VALUES THIS MORNING INCLUDE THE FOLLOWING: HGB 8.7, HCT 27.1, POTASSIUM 3.4, BUN 4, GLUCOSE 104, CALCIUM 7.8, AST 12, TOTAL PROTEIN 5.7, ALBUMIN 2.9. EMR INDICATES THAT PATIENTS FINGER STICK BLOOD SUGAR HAS RANGED FROM 94-378 THROUGHOUT THE NIGHT AND THIS MORNING. PATIENT REQUEST FOR A DIET TO BE ORDERED. WE WILL ORDER A SOFT DIABETIC DIET TO START THIS MORNING. OTHERWISE, WE WILL CONTINUE WITH CURRENT PLAN OF CARE TODAY. WE PLAN TO RECHECK AM LABS AND CONTINUE TO MONITOR PATIENT. - Past Medical Family Social History Past Med/Fam/Surg Hx: No changes since H&P Allergies: Allergies meperidine [From Demerol] Adverse Reaction (Verified 09/03/17 22:54) metoclopramide [From Reglan] Adverse Reaction (Verified 09/03/17 22:54) - Review of Systems ROS: No change since H&P - Vital Signs and I&O's Vital Signs: Temperature 98.0 F Pulse Rate [Right Brachial] 114 Pulse Rate [Left] 101 Pulse Rate 124 Respiratory Rate 16 Blood Pressure [Left Arm] 146/91 Blood Pressure [Right Arm] 140/88 Blood Pressure 160/97 O2 Sat by Pulse Oximetry 97 Intake and Output: Intake & Output 09/05/17 09/06/17 09/07/17 09/08/17 11:59 11:59 11:59 11:59 Intake Total 3411 904 2060 360 Output Total 1000 Balance 2411 904 2060 360 - Physical Exam Oriented: Normal. negative: Not Oriented, Unable to test Eyes: Normal. negative: Blurred Vision, Diplopia, Discharge, Photophobia Ear: Normal. negative: Swelling, Ecchymosis, Hemotypanum Nose: Normal. negative: Injected, Discharge Throat: Normal. negative: Tonsillar Hypertrophy Respiratory: Normal Cardiovascular: Normal, Tachycardia. negative: Murmur, Edema : Normal. negative: Hematuria, Discharge, Testicular Pain, Bleeding Auscultation: Bowel Sounds: Increased Palpation: Normal Tenderness: Diffuse. negative: Rebound, Guarding, Rigidity Skin: Normal. negative: Wound, Bruising, Ecchymosis Musculoskeletal: Normal Psychiatric: Normal Mood Description: Calm Affect: Normal Speech Pattern: Clear - Laboratory and Diagnostics Result Diagrams: 09/07/17 06:15 09/07/17 06:15 Labs: Laboratory WBC 6.1 X10^3/uL (3.6-10.0) 09/07/17 06:15 RBC 3.91 X10^6/uL (3.5-5.4) 09/07/17 06:15 Hgb 9.0 g/dL (12.0-16.0) L 09/07/17 06:15 Hct 27.9 % (36.0-47.0) L 09/07/17 06:15 MCV 71.2 fL (80.0-100.0) L 09/07/17 06:15 MCH 23.0 pg (27.0-34.0) L 09/07/17 06:15 MCHC 32.3 g/dL (33.0-35.0) L 09/07/17 06:15 RDW 16.8 % (11.6-16.5) H 09/07/17 06:15 Plt Count 221 X10^3/uL (150.0-450.0) 09/07/17 06:15 Plt Count Comment Adequate (ADEQUATE) 09/07/17 06:15 MPV 7.8 fL (7.4-11.0) 09/07/17 06:15 Neut % 74.5 % (42.0-75.0) 09/07/17 06:15 Lymph % 13.3 % (21.0-51.0) L 09/07/17 06:15 [place] % 9.5 % (0.0-13.0) 09/07/17 06:15 Eos % 2.2 % (0.9-2.9) 09/07/17 06:15 Baso % 0.5 % (0.2-1.0) 09/07/17 06:15 Neut # 4.6 x10^3/uL (2.2-4.8) 09/07/17 06:15 Lymph # 0.8 X10^3/uL (1.3-2.9) L 09/07/17 06:15 [place] # 0.6 x10^3/uL (0.3-0.8) 09/07/17 06:15 Eos # 0.1 x10^3/uL (0.0-0.2) 09/07/17 06:15 Baso # 0.0 X10^3/uL (0.0-0.1) 09/07/17 06:15 Absolute Nucleated RBC 0.0 /100WBC 09/07/17 06:15 Total Counted 100 09/03/17 23:34 Neutrophils % (Manual) 93 % (39-76) H 09/03/17 23:34 Band Neutrophils % 1 % (0-10) 09/03/17 23:34 Lymphocytes % (Manual) 5 % (13-43) L 09/03/17 23:34 Monocytes % (Manual) 1 % (4-9) L 09/03/17 23:34 Plt Morphology Comment Normal (NORMAL) 09/07/17 06:15 RBC Morphology Abnormal (NORMAL) A 09/07/17 06:15 Hypochromasia 1+ A 09/07/17 06:15 Anisocytosis Slight A 09/05/17 03:30 Microcytosis 1+ A 09/05/17 03:30 Sodium 141 mmol/L (136-145) 09/07/17 06:15 Corrected Sodium TNP 09/07/17 06:15 Potassium 3.3 mmol/L (3.5-5.1) L 09/07/17 06:15 Chloride 106 mmol/L (98-107) 09/07/17 06:15 Carbon Dioxide 29.2 mmol/L (21-32) 09/07/17 06:15 BUN 3 mg/dL (7-18) L 09/07/17 06:15 Creatinine 0.57 mg/dL (0.55-1.02) 09/07/17 06:15 Est GFR (MDRD) Af Amer > 60 (>60) 09/07/17 06:15 Est GFR (MDRD) Non-Af > 60 (>60) 09/07/17 06:15 Glucose 74 mg/dL (65-99) 09/07/17 06:15 POC Glucose (mg/dL) 272 mg/dL (65-99) H 09/07/17 13:55 Hemoglobin A1c 8.8 % (4.5-6.2) H 09/03/17 23:34 Calcium 7.6 mg/dL (8.5-10.1) L 09/07/17 06:15 Corrected Calcium 8.3 mg/dL (8.5-10.1) L 09/07/17 06:15 Magnesium 1.7 mg/dL (1.7-2.9) 09/06/17 05:49 Total Bilirubin 0.60 mg/dL (0.2-1.0) 09/07/17 06:15 AST 10 Units/L (15-37) L 09/07/17 06:15 ALT 14 Units/L (12-78) 09/07/17 06:15 Alkaline Phosphatase 88 Units/L (46-116) 09/07/17 06:15 Total Protein 6.2 g/dL (6.4-8.2) L 09/07/17 06:15 Albumin 3.1 g/dL (3.4-5.0) L 09/07/17 06:15 Globulin 3.1 g/dL (2.5-4.5) 09/07/17 06:15 Albumin/Globulin Ratio 1.0 Ratio (1.1-2.1) L 09/07/17 06:15 Specimen Type Clean catch urine 09/04/17 05:11 Urine Color Yellow (YELLOW) 09/04/17 05:11 Urine Appearance Clear (CLEAR) 09/04/17 05:11 Urine pH 6.0 (5.0 - 8.0) 09/04/17 05:11 Ur Specific [place] 1.015 (1.000-1.030) 09/04/17 05:11 Urine Protein 2+ (NEGATIVE) 09/04/17 05:11 Urine Glucose (UA) 4+ (NEGATIVE) 09/04/17 05:11 Urine Ketones 4+ (NEGATIVE) 09/04/17 05:11 Urine Occult Blood 5+ (NEGATIVE) 09/04/17 05:11 Urine Nitrite Negative (NEGATIVE) 09/04/17 05:11 Urine Bilirubin Negative (NEGATIVE) 09/04/17 05:11 Urine Urobilinogen Normal (NORMAL) 09/04/17 05:11 Ur Leukocyte Esterase Negative (NEGATIVE) 09/04/17 05:11 Urine RBC 0-3 /HPF (NEGATIVE) 09/04/17 05:11 Urine WBC 0-3 /HPF (NEGATIVE) 09/04/17 05:11 Ur Squamous Epith Cells Few /HPF (NEGATIVE) 09/04/17 05:11 Urine Bacteria Trace /HPF (NEGATIVE) 09/04/17 05:11 Ur Culture Indicated? No/not indicated 09/04/17 05:11 - Plan (1) Gastroparesis due to DM Status: Acute Plan: D5NS AT 150ML/HR, PHENERGAN 12.5MG IVP PRN, ZOFRAN 4MG IV PRN, PROTONIX DRIP, CONTINUE TO MONITOR (2) Diabetes mellitus type I Status: Chronic Qualifiers: Diabetes mellitus complication status: with unspecified complications Qualified Code(s): E10.8 - Type 1 diabetes mellitus with unspecified complications Plan: MONITOR OTBS, HUMULIN R SLIDING SCALE, CONTINUE TO MONITOR
== END 2017-09-07 15:30 | disposition home or self-care (01) | DRG 74 ==
LOC: ER 22:52 → MED/SURG 09-04 02:56 → OBSVTOIN 09-05 08:30
PROVIDERS: ADMIT Internal Medicine; ATTEND Internal Medicine
DX: E10.43 Type 1 diabetes mellitus with diabetic autonomic (poly)neuropathy (principal); R11.2 Nausea with vomiting, unspecified; K31.84 Gastroparesis; E10.65 Type 1 diabetes mellitus with hyperglycemia
CPT/HCPCS: 36415; 36591; 71010; 80053; 81001; 82947; 83036; 83735; 85025; 94760; 96365; 96367; 96374; 96375; 99284; A4216; A4222; C9113; G0378; J1170; J1815; J2405; J2550; J3480; J3490

== ENCOUNTER 2017-09-22 18:41 | Inpatient (IN) | payer BC, OTHER ==
--- NOTE | 2017-09-22 19:11 | DR.GENAD ---
HPI - PCP Primary Care Physician: dar - HPI Comment HPI Comment: HISTORY DIABETIC GASTROPARESIS. DENIES FEVER OR DYSURIA.GLUCOSE WAS IN THE 200S THIS AM. NOT ABLE TO HOLD DOWN FLUIDS MEDICATIONS OR FOOD. - Complaint/Symptoms Chief Complaint Doctors Comments: ABDOMINAL PAIN, V/V. TIMES ONE DAY. - Nurses notes reviewed Nurses Notes Review: Yes - Source History Provided: Patient - Mode of Arrival Mode of Arrival: Ambulatory - Timing Onset of Chief Complaint: 09/22/17 Came on: Suddenly - Duration Duration: Constant Duration: Days - Severity Severity: Moderate PMH - PMH Past Medical History: Yes Past Medical History: Diabetes, GERD Past Surgical History: Yes Surgical History: Appendectomy, - Family History History of Family Medical Conditions: Yes Family Medical History: Diabetes Mellitus - Social History Does patient currently use any type of tobacco product: No Have you used tobacco products in the last 12 months: No Type of Tobacco Use: None Does any household member use tobacco: No Alcohol Use: None Do you use any recreational Drugs:: No Lives With: Family Lives Where: Home - infectious screening In the last 2 months have you had wt loss of >10#?: NO Have you had fever, night sweats or hemotysis?: No Have you traveled outside the country in the last 6 months?: No Isolation: Standard ROS - Review of Systems Constitutional: Weakness, Fatigue, Loss of Appetite Eyes: No Symptoms Reported. negative: Eye Pain, Discharge ENTM: No Symptoms Reported. negative: Ear Pain, Ear Discharge, Nose Discharge, Nose Congestion, Throat Pain Respiratoy: Short of Breath. negative: Productive Cough, Non-Productive Cough, Wheezing, Hemoptysis Cardiovascular: Chest Pain, Palpitations. negative: Edema Gastrointestinal/Abdominal: Abdominal Pain, Nausea, Vomiting Genitourinary: No Symptoms Reported. negative: Dysuria, Frequency, Hematuria Neurological: Headache, Weakness, Dizziness Musculoskeletal: Muscle Pain Integumentary: Dryness Hematologic/Lymphatic: No Symptoms Reported Endocrine: Increased Thirst. negative: Flushing All Other Systems: Reviewed and Negative PE - Vital Signs Vitals: Temperature 99.4 F Pulse Rate [Apical] 112 Pulse Rate [Left] 115 Pulse Rate 122 Respiratory Rate 16 Blood Pressure [Left Arm] 145/86 Blood Pressure [Right Arm] 140/88 Blood Pressure 156/106 O2 Sat by Pulse Oximetry 100 - General Limitations: No Limitations General Appearance: Alert - Head Head Exam: Normal Inspection - Eyes Eye exam: Normal Appearance - ENT ENT Exam: Normal External Ear Exam External Ear Exam: Normal External Inspection TM/Canal Exam: Bilateral Normal Nose Exam: Normal Nose Exam Mouth Exam: Normal Inspection Throat Exam: Normal Inspection - Neck Neck Exam: Normal Inspection - Chest Chest Inspection: Symmetric Chest Wall Rise - Respiratory Respiratory Exam: Normal Lung Sounds Bilat Respiratory Exam: Bilateral Clear to Auscultation - Cardiovascular Cardiovascular Exam: Regular Rate, Normal Rhythm, Bradycardia - Abdominal Exam Abdominal Exam: Normal Bowel Sounds, Soft, Tenderness Abdominal Tenderness: Diffuse, Moderate - Extremities Extremities Exam: Normal Inspection - Back Back Exam: Normal Inspection - Neurologic Neurological Exam: Alert, Oriented X3 - Psychiatric Psychiatric Exam: Normal Affect, Normal Mood - Skin Skin Exam: Dry MDM - Additional Information Additional Information Obtained From: Family - Differential Diagnosis Differential Diagnosis: ABDOMINAL PAIN, DIABETIC GASTROPARESIS Course - Treatment Treatment: IN BOLUS NS IN ED WITH NAUSEA AND PAIN MEDS. STILL NAUSEATED AND HAVING PAIN. - Reevaluation 1st: Improved (SLIGHTLY IMPROVED.) - Consultation Consultation Comments: DISCUSS PATIENT WITH DR. FRANCIS. HE WILL ADMIT PATIENT. - Education/Counseling Education/Counseling: Patient, Family, Education Educated On: Treatment, Diagnosis, Needs for Follow Up ROR - Labs Reviewed Laboratory Results Reviewed?: Yes Result Diagrams: 09/22/17 19:33 09/23/17 00:37 Laboratory: WBC 8.4 X10^3/uL (3.6-10.0) 09/22/17 19:33 RBC 5.01 X10^6/uL (3.5-5.4) 09/22/17 19:33 Hgb 11.1 g/dL (12.0-16.0) L 09/22/17 19:33 Hct 34.7 % (36.0-47.0) L 09/22/17 19:33 MCV 69.1 fL (80.0-100.0) L 09/22/17 19:33 MCH 22.2 pg (27.0-34.0) L 09/22/17 19:33 MCHC 32.1 g/dL (33.0-35.0) L 09/22/17 19:33 RDW 17.0 % (11.6-16.5) H 09/22/17 19:33 Plt Count 388 X10^3/uL (150.0-450.0) 09/22/17 19:33 Plt Count Comment Adequate (ADEQUATE) 09/22/17 19:33 MPV 7.8 fL (7.4-11.0) 09/22/17 19:33 Neut % 77.8 % (42.0-75.0) H 09/22/17 19:33 Lymph % 15.6 % (21.0-51.0) L 09/22/17 19: [place] % 5.1 % (0.0-13.0) 09/22/17 19:33 Eos % 0.3 % (0.9-2.9) L 09/22/17 19:33 Baso % 1.2 % (0.2-1.0) H 09/22/17 19: Neut # 6.6 x10^3/uL (2.2-4.8) H 09/22/17 19:33 Lymph # 1.3 X10^3/uL (1.3-2.9) 09/22/17 19:33 [place] # 0.4 x10^3/uL (0.3-0.8) 09/22/17 19:33 Eos # 0.0 x10^3/uL (0.0-0.2) 09/22/17 19:33 Baso # 0.1 X10^3/uL (0.0-0.1) 09/22/17 19:33 Absolute Nucleated RBC 0.1 /100WBC 09/22/17 19:33 Plt Morphology Comment Normal (NORMAL) 09/22/17 19:33 RBC Morphology Abnormal (NORMAL) A 09/22/17 19:33 Hypochromasia 1+ A 09/22/17 19:33 Anisocytosis Slight A 09/22/17 19:33 Microcytosis 1+ A 09/22/17 19:33 Sodium 137 mmol/L (136-145) 09/22/17 19:33 Corrected Sodium 140 mmol/L (136-145) 09/22/17 19:33 Potassium 3.7 mmol/L (3.5-5.1) 09/22/17 19:33 Chloride 100 mmol/L (98-107) 09/22/17 19:33 Carbon Dioxide 25.4 mmol/L (21-32) 09/22/17 19:33 BUN 14 mg/dL (7-18) 09/22/17 19:33 Creatinine 0.76 mg/dL (0.55-1.02) 09/22/17 19:33 Est GFR (MDRD) Af Amer > 60 (>60) 09/22/17 19:33 Est GFR (MDRD) Non-Af > 60 (>60) 09/22/17 19:33 Glucose 217 mg/dL (65-99) H 09/22/17 19:33 Calcium 9.2 mg/dL (8.5-10.1) 09/22/17 19:33 Corrected Calcium TNP 09/22/17 19:33 Total Bilirubin 1.50 mg/dL (0.2-1.0) H 09/22/17 19:33 AST 16 Units/L (15-37) 09/22/17 19:33 ALT 17 Units/L (12-78) 09/22/17 19:33 Alkaline Phosphatase 104 Units/L (46-116) 09/22/17 19:33 Creatine Kinase 48 Units/L (26-192) 09/22/17 19:33 CK-MB (CK-2) < 1.0 ng/mL (0-4.0) 09/22/17 19:33 CK/CKMB % Calc 2.1 % (<4) 09/22/17 19:33 Troponin I < 0.02 ng/mL (0-1.5) 09/22/17 19:33 Total Protein 7.8 g/dL (6.4-8.2) 09/22/17 19:33 Albumin 4.0 g/dL (3.4-5.0) 09/22/17 19:33 Globulin 3.8 g/dL (2.5-4.5) 09/22/17 19:33 Albumin/Globulin Ratio 1.1 Ratio (1.1-2.1) 09/22/17 19:33 Amylase 20 Units/L (25-115) L 09/22/17 19:33 Lipase 100 Units/L (73-393) 09/22/17 19:33 Acetone, Semi-Quant Small (NEGATIVE) H 09/22/17 19:33 - XRAY XRAY Interpreted by: Radiologist - Diagnosis Discharge Problem: Diabetic gastroparesis Abdominal pain Qualifiers: Abdominal location: generalized Qualified Code(s): R10.84 - Generalized abdominal pain - Discharge Plan Disposition: ADMITTED INPATIENT Condition: Stable - Follow ups/Referrals - Instructions
[2017-09-22] MEDS ORDERED: NS 1000 ML 1,000 ML IV ONE (19:14)
[2017-09-22] MEDS ORDERED: PHENERGAN INJ 25 MG IV ONE ×2 (19:14→20:47)
[2017-09-22] MEDS ORDERED: MORPHINE SULFATE INJ 4 MG IVP ONE (19:14)
[2017-09-22] MEDS ORDERED: MORPHINE SULFATE INJ 4 MG ONE (19:20)
[2017-09-22] MEDS ORDERED: PHENERGAN INJ 25 MG ONE ×2 (19:20→21:39)
[2017-09-22] MEDS ORDERED: NS 1000 ML 1,000 ML ONE ×2 (19:20→21:39)
[2017-09-22 19:42] LABS: BASOPHILS # (AUTO) 0.1 X10^3/uL (0.0-0.1); BASOPHILS % (AUTO) 1.2 % (0.2-1.0); EOSINOPHILS % (AUTO) 0.3 % (0.9-2.9); HEMATOCRIT 34.7 % (36.0-47.0); HEMOGLOBIN 11.1 g/dL (12.0-16.0); LYMPHOCYTES # (AUTO) 1.3 X10^3/uL (1.3-2.9); LYMPHOCYTES % (AUTO) 15.6 % (21.0-51.0); MEAN CORPUSCULAR HEMOGLOBIN 22.2 pg (27.0-34.0); MEAN CORPUSCULAR HGB CONC 32.1 g/dL (33.0-35.0); MEAN CORPUSCULAR VOLUME 69.1 fL (80.0-100.0); MEAN PLATELET VOLUME 7.8 fL (7.4-11.0); MONOCYTES # (AUTO) 0.4 x10^3/uL (0.3-0.8); MONOCYTES % (AUTO) 5.1 % (0.0-13.0); NEUTROPHILS # (AUTO) 6.6 x10^3/uL (2.2-4.8); NEUTROPHILS % (AUTO) 77.8 % (42.0-75.0); PLATELET COUNT 388 X10^3/uL (150.0-450.0); RED BLOOD COUNT 5.01 X10^6/uL (3.5-5.4); WHITE BLOOD COUNT 8.4 X10^3/uL (3.6-10.0)
[2017-09-22 19:53] LABS: ANISOCYTOSIS SLIGHT; HYPOCHROMASIA 1+; MICROCYTOSIS 1+; PLATELET MORPHOLOGY COMMENT NORMAL (NORMAL)
[2017-09-22 20:05] LABS: BLOOD UREA NITROGEN 14 mg/dL (7-18); CALCIUM 9.2 mg/dL (8.5-10.1); CARBON DIOXIDE 25.4 mmol/L (21-32); CHLORIDE 100 mmol/L (98-107); COR NA(FOR HYPERGLY) 140 mmol/L (136-145); CREATININE 0.76 mg/dL (0.55-1.02); SODIUM 137 mmol/L (136-145); TROPONIN I < 0.02 ng/mL (0-1.5); eGFR BLACK RACES > 60 (>60); eGFR NON BLACK RACES > 60 (>60)
[2017-09-22 20:17] LABS: ALANINE AMINOTRANSFERASE 17 Units/L (12-78); ALKALINE PHOSPHATASE 104 Units/L (46-116); AMYLASE 20 Units/L (25-115); ASPARTATE AMINO TRANSFERASE 16 Units/L (15-37); CKMB % 2.1 % (<4); CREATINE KINASE 48 Units/L (26-192); CREATINE KINASE MB < 1.0 ng/mL (0-4.0); LIPASE 100 Units/L (73-393); TOTAL PROTEIN 7.8 g/dL (6.4-8.2)
[2017-09-22] MEDS ORDERED: DILAUDID INJ IM ONE (20:47)
[2017-09-22] MEDS ORDERED: PEPCID 20 MG IV PREMIX* 20 MG/50 ML BAG IV ONE ×2 (20:49→21:38)
[2017-09-22] MEDS ORDERED: DILAUDID INJ IVP ONE (21:40)
[2017-09-22] MEDS ORDERED: DILAUDID INJ ONE (21:40)
[2017-09-22] MEDS ORDERED: NS 1000 ML 1,000 ML IV SCH (22:00)
--- NOTE | 2017-09-22 22:17 | RAD ---
HISTORY: Nausea, vomiting, and abdominal pain. Study: Acute abdominal series Comparison: Acute abdominal series and CT abdomen/pelvis dated January 06, 2017. Findings: The trachea is midline. The cardiac silhouette is unremarkable. The lungs are clear without focal i nfiltrate or effusion. The bony thorax is unremarkable. Left chest Port-A-Cath appears unchanged. P atient is status post median sternotomy. Flat plate and upright evaluation of the abdomen demonstrates a nonspecific/nonobstructive bowel gas pattern with air and stool to the level of the rectum. No obvious free air. No pathological soft tis rin mass or calcification can be observed. The bony structures are grossly intact. IMPRESSION: 1. No acute cardiopulmonary disease. 2. No evidence for acute abdominal pathology identified. Reported By:
[2017-09-22] MEDS: PROTONIX INJ 40 MG VIAL IVP SCH (23:12)
[2017-09-22] MEDS: NS 1000 ML 1,000 ML IV SCH (23:15)
[2017-09-23 01:08] VITALS: BMI 23.8
[2017-09-23] MEDS: HumuLIN R SUBCUT PRN (01:17)
[2017-09-23] MEDS: PHENERGAN INJ 25 MG IVP PRN ×4 (03:15→23:26)
[2017-09-23 04:29] LABS: BASOPHILS # (AUTO) 0.1 X10^3/uL (0.0-0.1); BASOPHILS % (AUTO) 0.6 % (0.2-1.0); HEMATOCRIT 32.5 % (36.0-47.0); HEMOGLOBIN 10.2 g/dL (12.0-16.0); LYMPHOCYTES # (AUTO) 0.6 X10^3/uL (1.3-2.9); LYMPHOCYTES % (AUTO) 6.1 % (21.0-51.0); MEAN CORPUSCULAR HEMOGLOBIN 21.8 pg (27.0-34.0); MEAN CORPUSCULAR HGB CONC 31.3 g/dL (33.0-35.0); MEAN CORPUSCULAR VOLUME 69.6 fL (80.0-100.0); MEAN PLATELET VOLUME 8.2 fL (7.4-11.0); MONOCYTES # (AUTO) 0.2 x10^3/uL (0.3-0.8); MONOCYTES % (AUTO) 2.3 % (0.0-13.0); NEUTROPHILS # (AUTO) 9.2 x10^3/uL (2.2-4.8); PLATELET COUNT 337 X10^3/uL (150.0-450.0); RED BLOOD COUNT 4.67 X10^6/uL (3.5-5.4); RED CELL DISTRIBUTION WIDTH 16.9 % (11.6-16.5); WHITE BLOOD COUNT 10.1 X10^3/uL (3.6-10.0)
[2017-09-23 04:35] LABS: ALANINE AMINOTRANSFERASE 16 Units/L (12-78); ALBUMIN 3.5 g/dL (3.4-5.0); ALKALINE PHOSPHATASE 97 Units/L (46-116); ASPARTATE AMINO TRANSFERASE 11 Units/L (15-37); BLOOD UREA NITROGEN 14 mg/dL (7-18); CALCIUM 8.4 mg/dL (8.5-10.1); CARBON DIOXIDE 22.3 mmol/L (21-32); CHLORIDE 104 mmol/L (98-107); COR NA(FOR HYPERGLY) 142 mmol/L (136-145); CREATININE 0.74 mg/dL (0.55-1.02); SODIUM 139 mmol/L (136-145); eGFR BLACK RACES > 60 (>60); eGFR NON BLACK RACES > 60 (>60)
[2017-09-23] MEDS: NS 1000 ML 1,000 ML IV SCH ×4 (04:56→23:30)
[2017-09-23] MEDS: TORADOL 30 MG VIAL IVP PRN ×3 (04:56→23:25)
[2017-09-23 05:39] LABS: BILIRUBIN,URINE NEGATIVE (NEGATIVE); BLOOD/HEMOGLOBIN,URINE 1+ (NEGATIVE); GLUCOSE, URINE 4+ (NEGATIVE); KETONES,URINE 3+ (NEGATIVE); LEUKOCYTE ESTERASE ,URINE NEGATIVE (NEGATIVE); NITRITES,URINE NEGATIVE (NEGATIVE); PROTEIN,URINE NEGATIVE (NEGATIVE); UROBILINOGEN,URINE NORMAL (NORMAL)
[2017-09-23 05:53] LABS: BAND NEUTROPHILS % 6 % (0-10); PLATELET MORPHOLOGY COMMENT NORMAL (NORMAL)
[2017-09-23 05:54] LABS: HYPOCHROMASIA 2+; MICROCYTOSIS 1+
[2017-09-23 06:01] LABS: AMORPHOUS SEDIMENT,UR 1+ /HPF (NEGATIVE); APPEARANCE,URINE SLIGHTLY HAZY (CLEAR); BACTERIA,URINE TRACE /HPF (NEGATIVE); COLOR,URINE YELLOW (YELLOW); RBC,URINE 0-3 /HPF (NEGATIVE); SQUAMOUS EPITHELIAL CELL,UR FEW /HPF (NEGATIVE)
[2017-09-23] MEDS ORDERED: PHARMACY CONSULT - DOSE _____ XX ONE (09:30)
[2017-09-23] MEDS: PROTONIX INJ 40 MG VIAL IVP SCH (09:46)
[2017-09-23] MEDS: ZOFRAN INJ 4 MG VIAL IVP PRN (11:37)
[2017-09-23] MEDS: [UNRECOGNIZED DRUG - OTHER] PO SCH ×4 (13:41→23:29)
[2017-09-23] MEDS ORDERED: ERYTHROMYCIN STEARATE 250 MG TAB PO SCH (15:00)
[2017-09-23] MEDS: VISTARIL PO PRN (20:18)
[2017-09-23] MEDS: SNACK - Diabetic Appropriate PO SCH (20:20)
[2017-09-24] MEDS: [UNRECOGNIZED DRUG - OTHER] PO SCH ×5 (04:37→20:45)
[2017-09-24 04:49] LABS: ABG ALLEN TEST POS; ABG HCO3 20.9 mmol/L (22-26); FRACTIONATED INSPIRED OXYGEN 21
[2017-09-24] MEDS: NS 1000 ML 1,000 ML IV SCH ×2 (05:51→08:10)
[2017-09-24 06:14] LABS: BASOPHILS # (AUTO) 0.1 X10^3/uL (0.0-0.1); BASOPHILS % (AUTO) 0.8 % (0.2-1.0); HEMATOCRIT 25.7 % (36.0-47.0); HEMOGLOBIN 8.3 g/dL (12.0-16.0); LYMPHOCYTES # (AUTO) 1.3 X10^3/uL (1.3-2.9); LYMPHOCYTES % (AUTO) 13.6 % (21.0-51.0); MEAN CORPUSCULAR HEMOGLOBIN 22.3 pg (27.0-34.0); MEAN CORPUSCULAR HGB CONC 32.1 g/dL (33.0-35.0); MEAN CORPUSCULAR VOLUME 69.3 fL (80.0-100.0); MEAN PLATELET VOLUME 8.1 fL (7.4-11.0); MONOCYTES # (AUTO) 0.4 x10^3/uL (0.3-0.8); MONOCYTES % (AUTO) 4.1 % (0.0-13.0); NEUTROPHILS # (AUTO) 7.7 x10^3/uL (2.2-4.8); NEUTROPHILS % (AUTO) 81.5 % (42.0-75.0); PLATELET COUNT 271 X10^3/uL (150.0-450.0); RED BLOOD COUNT 3.71 X10^6/uL (3.5-5.4); RED CELL DISTRIBUTION WIDTH 17.2 % (11.6-16.5); WHITE BLOOD COUNT 9.5 X10^3/uL (3.6-10.0)
[2017-09-24 06:27] LABS: ALANINE AMINOTRANSFERASE 18 Units/L (12-78); ALBUMIN 2.9 g/dL (3.4-5.0); ALKALINE PHOSPHATASE 85 Units/L (46-116); ASPARTATE AMINO TRANSFERASE 19 Units/L (15-37); BLOOD UREA NITROGEN 12 mg/dL (7-18); CALCIUM 7.8 mg/dL (8.5-10.1); CARBON DIOXIDE 21.3 mmol/L (21-32); CHLORIDE 106 mmol/L (98-107); COR CA(FOR HYPOALB) 8.7 mg/dL (8.5-10.1); COR NA(FOR HYPERGLY) 140 mmol/L (136-145); CREATININE 0.81 mg/dL (0.55-1.02); SODIUM 137 mmol/L (136-145); TOTAL PROTEIN 5.7 g/dL (6.4-8.2); eGFR BLACK RACES > 60 (>60); eGFR NON BLACK RACES > 60 (>60)
[2017-09-24 07:13] LABS: HYPOCHROMASIA 1+; PLATELET MORPHOLOGY COMMENT NORMAL (NORMAL)
[2017-09-24 07:14] LABS: MICROCYTOSIS 1+
[2017-09-24] MEDS: TORADOL 30 MG VIAL IVP PRN ×3 (08:10→22:47)
[2017-09-24] MEDS: PHENERGAN INJ 25 MG IVP PRN ×3 (08:10→22:47)
[2017-09-24] MEDS: PROTONIX INJ 40 MG VIAL IVP SCH (08:10)
[2017-09-24] MEDS: NS 1000 ML 1,000 ML with SODIUM BICARBONATE 8.4% INJ ADULT 50 ML IV SCH ×6 (14:52→21:46)
[2017-09-24] MEDS: HumuLIN R SUBCUT PRN ×2 (16:25→20:45)
[2017-09-24] MEDS: SNACK - Diabetic Appropriate PO SCH (20:45)
[2017-09-25] MEDS: [UNRECOGNIZED DRUG - OTHER] PO SCH ×6 (00:55→20:38)
[2017-09-25] MEDS: HumuLIN R SUBCUT PRN ×4 (01:07→17:03)
[2017-09-25] MEDS: VISTARIL PO PRN (02:50)
[2017-09-25] MEDS: NS 1000 ML 1,000 ML with SODIUM BICARBONATE 8.4% INJ ADULT 50 ML IV SCH ×8 (04:50→21:44)
[2017-09-25 05:06] LABS: BASOPHILS # (AUTO) 0.1 X10^3/uL (0.0-0.1); BASOPHILS % (AUTO) 2.4 % (0.2-1.0); EOSINOPHILS % (AUTO) 0.3 % (0.9-2.9); HEMATOCRIT 25.8 % (36.0-47.0); HEMOGLOBIN 8.4 g/dL (12.0-16.0); LYMPHOCYTES # (AUTO) 1.1 X10^3/uL (1.3-2.9); MEAN CORPUSCULAR HEMOGLOBIN 22.4 pg (27.0-34.0); MEAN CORPUSCULAR HGB CONC 32.6 g/dL (33.0-35.0); MEAN CORPUSCULAR VOLUME 68.8 fL (80.0-100.0); MEAN PLATELET VOLUME 8.2 fL (7.4-11.0); MONOCYTES # (AUTO) 0.4 x10^3/uL (0.3-0.8); MONOCYTES % (AUTO) 6.6 % (0.0-13.0); NEUTROPHILS # (AUTO) 4.4 x10^3/uL (2.2-4.8); NEUTROPHILS % (AUTO) 72.7 % (42.0-75.0); PLATELET COUNT 252 X10^3/uL (150.0-450.0); RED BLOOD COUNT 3.76 X10^6/uL (3.5-5.4); RED CELL DISTRIBUTION WIDTH 17.4 % (11.6-16.5); WHITE BLOOD COUNT 6.1 X10^3/uL (3.6-10.0)
[2017-09-25 05:28] LABS: ALANINE AMINOTRANSFERASE 20 Units/L (12-78); ALBUMIN 3.1 g/dL (3.4-5.0); ALKALINE PHOSPHATASE 91 Units/L (46-116); ASPARTATE AMINO TRANSFERASE 20 Units/L (15-37); BLOOD UREA NITROGEN 5 mg/dL (7-18); CALCIUM 7.7 mg/dL (8.5-10.1); CHLORIDE 104 mmol/L (98-107); COR CA(FOR HYPOALB) 8.4 mg/dL (8.5-10.1); COR NA(FOR HYPERGLY) 143 mmol/L (136-145); CREATININE 0.67 mg/dL (0.55-1.02); SODIUM 139 mmol/L (136-145); TOTAL PROTEIN 5.9 g/dL (6.4-8.2); eGFR BLACK RACES > 60 (>60); eGFR NON BLACK RACES > 60 (>60)
[2017-09-25 05:53] LABS: HYPOCHROMASIA 1+; MICROCYTOSIS 1+; PLATELET MORPHOLOGY COMMENT NORMAL (NORMAL); STOMATOCYTES PRESENT
[2017-09-25] MEDS ORDERED: K-LYTE EFFERVESCENT PO PRN (07:02)
[2017-09-25] MEDS ORDERED: MAG-OX TAB PO PRN (07:02)
[2017-09-25] MEDS ORDERED: MAGNESIUM SULFATE 1 GM/100 mL PREMIX 1 GM/100 ML BAG IV PRN (07:02)
[2017-09-25] MEDS: PROTONIX INJ 40 MG VIAL IVP SCH (08:43)
[2017-09-25] MEDS: K-RIDER 10 MEQ/NS 100 ML 10 MEQ/100 ML BAG IV PRN ×4 (08:43→11:31)
[2017-09-25] MEDS: PHENERGAN INJ 25 MG IVP PRN ×2 (11:58→19:02)
[2017-09-25] MEDS: SNACK - Diabetic Appropriate PO SCH (20:40)
[2017-09-25] MEDS ORDERED: HumuLIN R SUBCUT ONE (21:22)
--- NOTE | 2017-09-25 21:28 | PCM.PROG ---
Progress Note - Progress Note for Day of Date: 09/24/17 - Subjective Subjective: WAS ADMITTED OR ABDOMINAL PAIN AND DIABETIC GASTROPARESIS. SHE WAS HOSPITALIZED FOR THE SAME SYMPTOMS LAST WEEK. TODAY, SHE IS ALERT AND ORIENTED, LYING IN BED ON MORNING ROUNDS. SHE CONTINUES WITH COMPLAINTS OF ABDOMINAL PAIN, NAUSEA, AND VOMITING. ON EXAMINATION, LUNGS ARE CLEAR TO AUSCULTATION. ABDOMEN IS ROUND, SOFT, AND NOTED WITH MODERATE, DIFFUSE TENDERNESS. HER VITAL SIGNS THIS MORNING ARE 98.0-107-18-99%-109/66. ABNORMAL LAB VALUES INCLUDE THE FOLLOWING: HGB 8.3, HCT 25.7, GLUCOSE 112, CALCIUM 7.8, TOTAL BILI 1.60, TOTAL PROTEIN 5.7, ALBUMIN 2.9. URINE ACETONES LARGE. ARTERIAL BLOOD GAS REPORTED PH 7.410, PC02 33, P02 93, HC03 20.9, O2 SATURATION 97, BASE EXCESS -3.0. SHE HAS BEEN RECEIVING IV TORADOL FOR ABDOMINAL PAIN AND PROMETHAZINE AND ZOFRAN IV FOR NAUSEA. SHE IS NPO AT THIS TIME. TODAY, WE PLAN TO ADD AN AMP OF SODIUM BICARB TO EACH LITER OF IVF. OTHERWISE, WE WILL CONTINUE WITH CURRENT PLAN OF CARE. WE PLAN TO FOLLOW UP WITH AM LABS AND CONTINUE TO MONITOR PATIENT. - Past Medical Family Social History Past Med/Fam/Surg Hx: No changes since H&P Allergies: Allergies meperidine [From Demerol] Adverse Reaction (Verified 09/03/17 22:54) metoclopramide [From Reglan] Adverse Reaction (Verified 09/03/17 22:54) - Review of Systems ROS: No change since H&P - Vital Signs and I&O's Vital Signs: Temperature 98.1 F Pulse Rate [Right Brachial] 82 Pulse Rate [Apical] 121 Pulse Rate [Left] 80 Pulse Rate 122 Respiratory Rate 18 Blood Pressure [Left Arm] 100/63 Blood Pressure [Right Arm] 120/69 Blood Pressure 156/106 O2 Sat by Pulse Oximetry 94 Intake and Output: Intake & Output 09/23/17 09/24/17 09/25/17 09/26/17 11:59 11:59 11:59 11:59 Intake Total 1999 1950 5507 600 Output Total 800 1000 900 Balance 1999 1150 4507 -300 - Physical Exam Oriented: Normal Eyes: Normal Ear: Normal Nose: Normal Throat: Normal Respiratory: Normal Cardiovascular: Tachycardia : Normal Auscultation: Bowel Sounds: Normal Palpation: Normal Tenderness: Normal, Diffuse, Moderate Skin: Normal Musculoskeletal: Normal Psychiatric: Normal Mood Description: Calm Affect: Normal Speech Pattern: Clear, Appropriate - Laboratory and Diagnostics Result Diagrams: 09/25/17 03:45 09/25/17 21:00 Labs: Laboratory WBC 6.1 X10^3/uL (3.6-10.0) 09/25/17 03:45 RBC 3.76 X10^6/uL (3.5-5.4) 09/25/17 03:45 Hgb 8.4 g/dL (12.0-16.0) L 09/25/17 03:45 Hct 25.8 % (36.0-47.0) L 09/25/17 03:45 MCV 68.8 fL (80.0-100.0) L 09/25/17 03:45 MCH 22.4 pg (27.0-34.0) L 09/25/17 03:45 MCHC 32.6 g/dL (33.0-35.0) L 09/25/17 03:45 RDW 17.4 % (11.6-16.5) H 09/25/17 03:45 Plt Count 252 X10^3/uL (150.0-450.0) 09/25/17 03:45 Plt Count Comment Adequate (ADEQUATE) 09/25/17 03:45 MPV 8.2 fL (7.4-11.0) 09/25/17 03:45 Neut % 72.7 % (42.0-75.0) 09/25/17 03:45 Lymph % 18.0 % (21.0-51.0) L 09/25/17 03:45 [place] % 6.6 % (0.0-13.0) 09/25/17 03:45 Eos % 0.3 % (0.9-2.9) L 09/25/17 03:45 Baso % 2.4 % (0.2-1.0) H 09/25/17 03:45 Neut # 4.4 x10^3/uL (2.2-4.8) 09/25/17 03:45 Lymph # 1.1 X10^3/uL (1.3-2.9) L 09/25/17 03:45 [place] # 0.4 x10^3/uL (0.3-0.8) 09/25/17 03:45 Eos # 0.0 x10^3/uL (0.0-0.2) 09/25/17 03:45 Baso # 0.1 X10^3/uL (0.0-0.1) 09/25/17 03:45 Absolute Nucleated RBC 0.1 /100WBC 09/25/17 03:45 Total Counted 100 09/23/17 03:39 Neutrophils % (Manual) 88 % (39-76) H 09/23/17 03:39 Band Neutrophils % 6 % (0-10) 09/23/17 03:39 Lymphocytes % (Manual) 5 % (13-43) L 09/23/17 03:39 Monocytes % (Manual) 1 % (4-9) L 09/23/17 03:39 Plt Morphology Comment Normal (NORMAL) 09/25/17 03:45 RBC Morphology Abnormal (NORMAL) A 09/25/17 03:45 Hypochromasia 1+ A 09/25/17 03:45 Anisocytosis Slight A 09/22/17 19:33 Microcytosis 1+ A 09/25/17 03:45 Stomatocytes Present 09/25/17 03:45 Sample Site Rr 09/24/17 04:34 ABG pH 7.410 (7.35-7.45) 09/24/17 04:34 ABG pCO2 33.0 mmHg (35.0-45.0) L 09/24/17 04:34 ABG pO2 93.0 mmHg (80.0-100.0) 09/24/17 04:34 ABG HCO3 20.9 mmol/L (22-26) L 09/24/17 04:34 ABG O2 Saturation 97.0 % (90-100) 09/24/17 04:34 ABG Base Excess -3.0 mmol/L (-2.0-2.0) L 09/24/17 04:34 Jian Test Pos 09/24/17 04:34 A-a Gradient 15.0 mmHg 09/24/17 04:34 FiO2 21 09/24/17 04:34 Blood Gas Comments Stephen well ae 09/24/17 04:34 Sodium 139 mmol/L (136-145) 09/25/17 03:45 Corrected Sodium 143 mmol/L (136-145) 09/25/17 03:45 Potassium 3.4 mmol/L (3.5-5.1) L 09/25/17 15:08 Chloride 104 mmol/L (98-107) 09/25/17 03:45 Carbon Dioxide 27.0 mmol/L (21-32) 09/25/17 03:45 BUN 5 mg/dL (7-18) L 09/25/17 03:45 Creatinine 0.67 mg/dL (0.55-1.02) 09/25/17 03:45 Est GFR (MDRD) Af Amer > 60 (>60) 09/25/17 03:45 Est GFR (MDRD) Non-Af > 60 (>60) 09/25/17 03:45 Glucose 444 mg/dL (65-99) H 09/25/17 21:00 POC Glucose (mg/dL) 453 mg/dL (65-99) H* 09/25/17 20:49 Calcium 7.7 mg/dL (8.5-10.1) L 09/25/17 03:45 Corrected Calcium 8.4 mg/dL (8.5-10.1) L 09/25/17 03:45 Magnesium 1.7 mg/dL (1.7-2.9) 09/25/17 03:45 Total Bilirubin 1.20 mg/dL (0.2-1.0) H 09/25/17 03:45 AST 20 Units/L (15-37) 09/25/17 03:45 ALT 20 Units/L (12-78) 09/25/17 03:45 Alkaline Phosphatase 91 Units/L (46-116) 09/25/17 03:45 Creatine Kinase 48 Units/L (26-192) 09/22/17 19:33 CK-MB (CK-2) < 1.0 ng/mL (0-4.0) 09/22/17 19:33 CK/CKMB % Calc 2.1 % (<4) 09/22/17 19:33 Troponin I < 0.02 ng/mL (0-1.5) 09/22/17 19:33 Total Protein 5.9 g/dL (6.4-8.2) L 09/25/17 03:45 Albumin 3.1 g/dL (3.4-5.0) L 09/25/17 03:45 Globulin 2.8 g/dL (2.5-4.5) 09/25/17 03:45 Albumin/Globulin Ratio 1.1 Ratio (1.1-2.1) 09/25/17 03:45 Amylase 20 Units/L (25-115) L 09/22/17 19:33 Lipase 100 Units/L (73-393) 09/22/17 19:33 Specimen Type Random urine 09/23/17 05:16 Urine Color Yellow (YELLOW) 09/23/17 05:16 Urine Appearance Slightly hazy (CLEAR) 09/23/17 05:16 Urine pH 6.0 (5.0 - 8.0) 09/23/17 05:16 Ur Specific [place] 1.015 (1.000-1.030) 09/23/17 05:16 Urine Protein Negative (NEGATIVE) 09/23/17 05:16 Urine Glucose (UA) 4+ (NEGATIVE) 09/23/17 05:16 Urine Ketones 3+ (NEGATIVE) 09/23/17 05:16 Urine Occult Blood 1+ (NEGATIVE) 09/23/17 05:16 Urine Nitrite Negative (NEGATIVE) 09/23/17 05:16 Urine Bilirubin Negative (NEGATIVE) 09/23/17 05:16 Urine Acetone Small (NEGATIVE) H 09/25/17 09:35 Urine Urobilinogen Normal (NORMAL) 09/23/17 05:16 Ur Leukocyte Esterase Negative (NEGATIVE) 09/23/17 05:16 Urine RBC 0-3 /HPF (NEGATIVE) 09/23/17 05:16 Urine WBC 0-3 /HPF (NEGATIVE) 09/23/17 05:16 Ur Squamous Epith Cells Few /HPF (NEGATIVE) 09/23/17 05:16 Amorphous Sediment 1+ /HPF (NEGATIVE) 09/23/17 05:16 Urine Bacteria Trace /HPF (NEGATIVE) 09/23/17 05:16 Ur Culture Indicated? No/not indicated 09/23/17 05:16 Acetone, Semi-Quant Small (NEGATIVE) H 09/22/17 19:33 - Plan (1) Abdominal pain Status: Acute Qualifiers: Abdominal location: generalized Qualified Code(s): R10.84 - Generalized abdominal pain Plan: TORADOL 30MG IV Q6H PRN PAIN, CONTINUE TO MONITOR (2) Gastroparesis due to DM Status: Acute Plan: CONTINUE IV FLUIDS, CONTINUE PROMETHAZINE AND ZOFRAN IV FOR NAUSEA, CONTINUE TO MONITOR (3) Diabetes mellitus type I Status: Chronic Qualifiers: Diabetes mellitus complication status: with unspecified complications Plan: MONITOR OTBS, CONTINUE HUMULIN R SLIDING SCALE, CONTINUE TO MONITOR
--- NOTE | 2017-09-25 21:29 | PCM.PROG ---
Progress Note - Progress Note for Day of Date: 09/25/17 - Subjective Subjective: WAS ADMITTED OR ABDOMINAL PAIN AND DIABETIC GASTROPARESIS. TODAY, SHE IS ALERT AND ORIENTED, LYING IN BED ON MORNING ROUNDS. SHE CONTINUES WITH COMPLAINTS OF ABDOMINAL PAIN AND NAUSEA. ON EXAMINATION, LUNGS ARE CLEAR TO AUSCULTATION. ABDOMEN IS ROUND, SOFT, AND NOTED WITH MODERATE, DIFFUSE TENDERNESS. HER VITAL SIGNS THIS MORNING ARE 98.2-74-18-100%-120/69. ABNORMAL LAB VALUES INCLUDE THE FOLLOWING: HGB 8.4, HCT 25.8, POTASSIUM 3.2, BUN 5, GLUCOSE 250, CALCIUM 7.7, TOTAL BILI 1.20, TOTAL PROTEIN 5.9, ALBUMIN 3.1. URINE ACETONES SMALL. PATIENT WAS ADVANCED TO A CLEAR LIQUID DIET YESTERDAY, HOWEVER, STAFF REPORTS THAT PATIENT HAS BEEN NON-COMPLAINT WITH DIET. PATIENT WILL BE CHANGED BACK TO NPO DUE TO CONTINUOUS NAUSEA. OTHERWISE, WE WILL CONTINUE WITH CURRENT PLAN OF CARE. WE PLAN TO FOLLOW UP WITH AM LABS AND CONTINUE TO MONITOR PATIENT. WILL RESUME CARE OF PATIENT IN THE MORNING. - Past Medical Family Social History Past Med/Fam/Surg Hx: No changes since H&P Allergies: Allergies meperidine [From Demerol] Adverse Reaction (Verified 09/03/17 22:54) metoclopramide [From Reglan] Adverse Reaction (Verified 09/03/17 22:54) - Review of Systems ROS: No change since H&P - Vital Signs and I&O's Vital Signs: Temperature 98.1 F Pulse Rate [Right Brachial] 82 Pulse Rate [Apical] 121 Pulse Rate [Left] 80 Pulse Rate 122 Respiratory Rate 18 Blood Pressure [Left Arm] 100/63 Blood Pressure [Right Arm] 120/69 Blood Pressure 156/106 O2 Sat by Pulse Oximetry 94 Intake and Output: Intake & Output 09/23/17 09/24/17 09/25/17 09/26/17 11:59 11:59 11:59 11:59 Intake Total 1999 1950 5507 600 Output Total 800 1000 900 Balance 1999 1150 4507 -300 - Physical Exam Oriented: Normal Eyes: Normal Ear: Normal Nose: Normal Throat: Normal Respiratory: Normal Cardiovascular: Normal : Normal Auscultation: Bowel Sounds: Normal Palpation: Normal Tenderness: Normal, Diffuse, Moderate Skin: Normal Musculoskeletal: Normal Psychiatric: Normal Mood Description: Calm Affect: Normal Speech Pattern: Clear, Appropriate - Laboratory and Diagnostics Result Diagrams: 09/25/17 03:45 09/25/17 21:00 Labs: Laboratory WBC 6.1 X10^3/uL (3.6-10.0) 09/25/17 03:45 RBC 3.76 X10^6/uL (3.5-5.4) 09/25/17 03:45 Hgb 8.4 g/dL (12.0-16.0) L 09/25/17 03:45 Hct 25.8 % (36.0-47.0) L 09/25/17 03:45 MCV 68.8 fL (80.0-100.0) L 09/25/17 03:45 MCH 22.4 pg (27.0-34.0) L 09/25/17 03:45 MCHC 32.6 g/dL (33.0-35.0) L 09/25/17 03:45 RDW 17.4 % (11.6-16.5) H 09/25/17 03:45 Plt Count 252 X10^3/uL (150.0-450.0) 09/25/17 03:45 Plt Count Comment Adequate (ADEQUATE) 09/25/17 03:45 MPV 8.2 fL (7.4-11.0) 09/25/17 03:45 Neut % 72.7 % (42.0-75.0) 09/25/17 03:45 Lymph % 18.0 % (21.0-51.0) L 09/25/17 03:45 [place] % 6.6 % (0.0-13.0) 09/25/17 03:45 Eos % 0.3 % (0.9-2.9) L 09/25/17 03:45 Baso % 2.4 % (0.2-1.0) H 09/25/17 03:45 Neut # 4.4 x10^3/uL (2.2-4.8) 09/25/17 03:45 Lymph # 1.1 X10^3/uL (1.3-2.9) L 09/25/17 03:45 [place] # 0.4 x10^3/uL (0.3-0.8) 09/25/17 03:45 Eos # 0.0 x10^3/uL (0.0-0.2) 09/25/17 03:45 Baso # 0.1 X10^3/uL (0.0-0.1) 09/25/17 03:45 Absolute Nucleated RBC 0.1 /100WBC 09/25/17 03:45 Total Counted 100 09/23/17 03:39 Neutrophils % (Manual) 88 % (39-76) H 09/23/17 03:39 Band Neutrophils % 6 % (0-10) 09/23/17 03:39 Lymphocytes % (Manual) 5 % (13-43) L 09/23/17 03:39 Monocytes % (Manual) 1 % (4-9) L 09/23/17 03:39 Plt Morphology Comment Normal (NORMAL) 09/25/17 03:45 RBC Morphology Abnormal (NORMAL) A 09/25/17 03:45 Hypochromasia 1+ A 09/25/17 03:45 Anisocytosis Slight A 09/22/17 19:33 Microcytosis 1+ A 09/25/17 03:45 Stomatocytes Present 09/25/17 03:45 Sample Site Rr 09/24/17 04:34 ABG pH 7.410 (7.35-7.45) 09/24/17 04:34 ABG pCO2 33.0 mmHg (35.0-45.0) L 09/24/17 04:34 ABG pO2 93.0 mmHg (80.0-100.0) 09/24/17 04:34 ABG HCO3 20.9 mmol/L (22-26) L 09/24/17 04:34 ABG O2 Saturation 97.0 % (90-100) 09/24/17 04:34 ABG Base Excess -3.0 mmol/L (-2.0-2.0) L 09/24/17 04:34 Jian Test Pos 09/24/17 04:34 A-a Gradient 15.0 mmHg 09/24/17 04:34 FiO2 21 09/24/17 04:34 Blood Gas Comments Stephen well ae 09/24/17 04:34 Sodium 139 mmol/L (136-145) 09/25/17 03:45 Corrected Sodium 143 mmol/L (136-145) 09/25/17 03:45 Potassium 3.4 mmol/L (3.5-5.1) L 09/25/17 15:08 Chloride 104 mmol/L (98-107) 09/25/17 03:45 Carbon Dioxide 27.0 mmol/L (21-32) 09/25/17 03:45 BUN 5 mg/dL (7-18) L 09/25/17 03:45 Creatinine 0.67 mg/dL (0.55-1.02) 09/25/17 03:45 Est GFR (MDRD) Af Amer > 60 (>60) 09/25/17 03:45 Est GFR (MDRD) Non-Af > 60 (>60) 09/25/17 03:45 Glucose 444 mg/dL (65-99) H 09/25/17 21:00 POC Glucose (mg/dL) 453 mg/dL (65-99) H* 09/25/17 20:49 Calcium 7.7 mg/dL (8.5-10.1) L 09/25/17 03:45 Corrected Calcium 8.4 mg/dL (8.5-10.1) L 09/25/17 03:45 Magnesium 1.7 mg/dL (1.7-2.9) 09/25/17 03:45 Total Bilirubin 1.20 mg/dL (0.2-1.0) H 09/25/17 03:45 AST 20 Units/L (15-37) 09/25/17 03:45 ALT 20 Units/L (12-78) 09/25/17 03:45 Alkaline Phosphatase 91 Units/L (46-116) 09/25/17 03:45 Creatine Kinase 48 Units/L (26-192) 09/22/17 19:33 CK-MB (CK-2) < 1.0 ng/mL (0-4.0) 09/22/17 19:33 CK/CKMB % Calc 2.1 % (<4) 09/22/17 19:33 Troponin I < 0.02 ng/mL (0-1.5) 09/22/17 19:33 Total Protein 5.9 g/dL (6.4-8.2) L 09/25/17 03:45 Albumin 3.1 g/dL (3.4-5.0) L 09/25/17 03:45 Globulin 2.8 g/dL (2.5-4.5) 09/25/17 03:45 Albumin/Globulin Ratio 1.1 Ratio (1.1-2.1) 09/25/17 03:45 Amylase 20 Units/L (25-115) L 09/22/17 19:33 Lipase 100 Units/L (73-393) 09/22/17 19:33 Specimen Type Random urine 09/23/17 05:16 Urine Color Yellow (YELLOW) 09/23/17 05:16 Urine Appearance Slightly hazy (CLEAR) 09/23/17 05:16 Urine pH 6.0 (5.0 - 8.0) 09/23/17 05:16 Ur Specific [place] 1.015 (1.000-1.030) 09/23/17 05:16 Urine Protein Negative (NEGATIVE) 09/23/17 05:16 Urine Glucose (UA) 4+ (NEGATIVE) 09/23/17 05:16 Urine Ketones 3+ (NEGATIVE) 09/23/17 05:16 Urine Occult Blood 1+ (NEGATIVE) 09/23/17 05:16 Urine Nitrite Negative (NEGATIVE) 09/23/17 05:16 Urine Bilirubin Negative (NEGATIVE) 09/23/17 05:16 Urine Acetone Small (NEGATIVE) H 09/25/17 09:35 Urine Urobilinogen Normal (NORMAL) 09/23/17 05:16 Ur Leukocyte Esterase Negative (NEGATIVE) 09/23/17 05:16 Urine RBC 0-3 /HPF (NEGATIVE) 09/23/17 05:16 Urine WBC 0-3 /HPF (NEGATIVE) 09/23/17 05:16 Ur Squamous Epith Cells Few /HPF (NEGATIVE) 09/23/17 05:16 Amorphous Sediment 1+ /HPF (NEGATIVE) 09/23/17 05:16 Urine Bacteria Trace /HPF (NEGATIVE) 09/23/17 05:16 Ur Culture Indicated? No/not indicated 09/23/17 05:16 Acetone, Semi-Quant Small (NEGATIVE) H 09/22/17 19:33 - Plan (1) Abdominal pain Status: Acute Qualifiers: Abdominal location: generalized Qualified Code(s): R10.84 - Generalized abdominal pain Plan: TORADOL 30MG IV Q6H PRN PAIN, CONTINUE TO MONITOR (2) Gastroparesis due to DM Status: Acute Plan: CONTINUE IV FLUIDS, CONTINUE PROMETHAZINE AND ZOFRAN IV FOR NAUSEA, CONTINUE TO MONITOR (3) Diabetes mellitus type I Status: Chronic Qualifiers: Diabetes mellitus complication status: with unspecified complications Plan: MONITOR OTBS, CONTINUE HUMULIN R SLIDING SCALE, CONTINUE TO MONITOR
[2017-09-26] MEDS: NS 1000 ML 1,000 ML with SODIUM BICARBONATE 8.4% INJ ADULT 50 ML IV SCH ×6 (00:11→08:42)
[2017-09-26] MEDS: VISTARIL PO PRN (00:12)
[2017-09-26] MEDS: [UNRECOGNIZED DRUG - OTHER] PO SCH ×3 (00:40→08:34)
[2017-09-26 05:35] LABS: BASOPHILS # (AUTO) 0.1 X10^3/uL (0.0-0.1); BASOPHILS % (AUTO) 1.2 % (0.2-1.0); EOSINOPHILS # (AUTO) 0.1 x10^3/uL (0.0-0.2); EOSINOPHILS % (AUTO) 1.1 % (0.9-2.9); HEMATOCRIT 26.6 % (36.0-47.0); HEMOGLOBIN 8.7 g/dL (12.0-16.0); LYMPHOCYTES # (AUTO) 1.7 X10^3/uL (1.3-2.9); LYMPHOCYTES % (AUTO) 36.1 % (21.0-51.0); MEAN CORPUSCULAR HEMOGLOBIN 22.7 pg (27.0-34.0); MEAN CORPUSCULAR HGB CONC 32.8 g/dL (33.0-35.0); MEAN CORPUSCULAR VOLUME 69.2 fL (80.0-100.0); MEAN PLATELET VOLUME 8.1 fL (7.4-11.0); MONOCYTES # (AUTO) 0.4 x10^3/uL (0.3-0.8); MONOCYTES % (AUTO) 7.4 % (0.0-13.0); NEUTROPHILS # (AUTO) 2.6 x10^3/uL (2.2-4.8); NEUTROPHILS % (AUTO) 54.2 % (42.0-75.0); PLATELET COUNT 241 X10^3/uL (150.0-450.0); RED BLOOD COUNT 3.85 X10^6/uL (3.5-5.4); RED CELL DISTRIBUTION WIDTH 17.2 % (11.6-16.5); WHITE BLOOD COUNT 4.7 X10^3/uL (3.6-10.0)
[2017-09-26 05:38] LABS: ALANINE AMINOTRANSFERASE 22 Units/L (12-78); ALBUMIN 3.1 g/dL (3.4-5.0); ALKALINE PHOSPHATASE 91 Units/L (46-116); ASPARTATE AMINO TRANSFERASE 15 Units/L (15-37); BLOOD UREA NITROGEN 4 mg/dL (7-18); CALCIUM 7.6 mg/dL (8.5-10.1); CARBON DIOXIDE 28.7 mmol/L (21-32); CHLORIDE 102 mmol/L (98-107); COR CA(FOR HYPOALB) 8.3 mg/dL (8.5-10.1); COR NA(FOR HYPERGLY) 143 mmol/L (136-145); CREATININE 0.68 mg/dL (0.55-1.02); SODIUM 138 mmol/L (136-145); TOTAL PROTEIN 6.1 g/dL (6.4-8.2); eGFR BLACK RACES > 60 (>60); eGFR NON BLACK RACES > 60 (>60)
[2017-09-26 05:53] LABS: HYPOCHROMASIA 1+; MICROCYTOSIS 1+; PLATELET MORPHOLOGY COMMENT NORMAL (NORMAL)
[2017-09-26] MEDS: HumuLIN R SUBCUT PRN (06:21)
[2017-09-26] MEDS: K-RIDER 10 MEQ/NS 100 ML 10 MEQ/100 ML BAG IV PRN (06:24)
[2017-09-26] MEDS: PROTONIX INJ 40 MG VIAL IVP SCH (08:35)
[2017-09-26] MEDS ORDERED: NS + KCL 20 MEQ/L 1,000 ML IV PRN (08:47)
[2017-09-26] MEDS: TORADOL 30 MG VIAL IVP PRN (09:51)
[2017-09-26] MEDS: ZOFRAN INJ 4 MG VIAL IVP PRN (09:52)
[2017-09-26] MEDS ORDERED: POTASSIUM CHLORIDE LIQ 20 MEQ UDC PO SCH (12:00)
[2017-09-26 13:20] VITALS: BP 123/76
== END 2017-09-26 12:40 | disposition home or self-care (01) | DRG 74 ==
LOC: ER 18:41 → MED/SURG 22:04
PROVIDERS: ADMIT Obstetrics & Gynecology Obstetrics; ATTEND Obstetrics & Gynecology Obstetrics
DX: E10.43 Type 1 diabetes mellitus with diabetic autonomic (poly)neuropathy (principal); K31.84 Gastroparesis; R10.84 Generalized abdominal pain; R06.02 Shortness of breath; R11.2 Nausea with vomiting, unspecified; K56.41 Fecal impaction; Z79.4 Long term (current) use of insulin; E10.65 Type 1 diabetes mellitus with hyperglycemia
CPT/HCPCS: 36415; 36591; 36600; 74022; 80053; 81001; 81002; 82009; 82150; 82550; 82553; 82803; 82947; 83690; 83735; 84132; 84484; 85025; 96365; 96367; 96374; 96375; 99284; A4222; C9113; Q0177; S0028; J1170; J1610; J1815; J1885; J2270; J2405; J2550; J3480; J3490

== ENCOUNTER 2017-10-18 03:38 | Emergency (ER) | payer BC, OTHER ==
[2017-10-18 03:51] VITALS: BMI 23.3
[2017-10-18] MEDS ORDERED: NS 1000 ML 1,000 ML ONE (04:00)
[2017-10-18] MEDS ORDERED: NS 1000 ML 1,000 ML IV ONE (04:06)
[2017-10-18] MEDS ORDERED: PHENERGAN INJ 25 MG IV ONE ×2 (04:06→07:56)
[2017-10-18] MEDS ORDERED: PHENERGAN INJ 25 MG ONE ×3 (04:07→07:58)
[2017-10-18] MEDS ORDERED: DILAUDID INJ IVP ONE ×2 (04:15→07:56)
--- NOTE | 2017-10-18 04:16 | DR.GENAD ---
HPI - PCP Primary Care Physician: MARTÍN - HPI Comment HPI Comment: WORSE TONIGHT. NO FEVER. HISTORY DIABETIC GASTROPARESIS. FLARE UP . PATIENT NOT HOLDING DOWN HOME MEDICATIONS. - Complaint/Symptoms Chief Complaint Doctors Comments: ABDOMINAL PAIN, N/V FOR 1 DAY. Chief Complaint:: N/V - Nurses notes reviewed Nurses Notes Review: Yes - Source History Provided: Patient, Family Member - Mode of Arrival Mode of Arrival: Ambulatory - Timing Onset of Chief Complaint: 10/18/17 Came on: Suddenly - Duration Duration: Constant Duration: Days - Severity Severity: Moderate PMH - PMH Past Medical History: Yes Past Medical History: Diabetes, GERD Past Medical History Comment: GASTROPARESIS Past Surgical History: Yes Surgical History: Appendectomy, - Family History History of Family Medical Conditions: Yes Family Medical History: Diabetes Mellitus - Social History Does patient currently use any type of tobacco product: No Have you used tobacco products in the last 12 months: No Type of Tobacco Use: None Does any household member use tobacco: No Alcohol Use: None Do you use any recreational Drugs:: No Lives With: Family Lives Where: Home - infectious screening In the last 2 months have you had wt loss of >10#?: NO Have you had fever, night sweats or hemotysis?: No Have you traveled outside the country in the last 6 months?: No Isolation: Standard ROS - Review of Systems Constitutional: No Symptoms Reported Eyes: No Symptoms Reported ENTM: No Symptoms Reported Respiratoy: No Symptoms Reported Cardiovascular: No Symptoms Reported Gastrointestinal/Abdominal: Abdominal Pain, Nausea, Vomiting Genitourinary: Dysuria, Frequency, Hematuria Neurological: No Symptoms Reported Musculoskeletal: No Symptoms Reported Integumentary: No Symptoms Reported Hematologic/Lymphatic: No Symptoms Reported Endocrine: No Symptoms Reported All Other Systems: Reviewed and Negative PE - Vital Signs Vitals: Temperature 97.8 F Pulse Rate [Left Brachial] 79 Pulse Rate 120 Respiratory Rate 22 Blood Pressure [Left Arm] 132/88 Blood Pressure [Right Arm] 120/69 Blood Pressure 178/108 O2 Sat by Pulse Oximetry 96 - General Limitations: No Limitations General Appearance: Alert - Head Head Exam: Normal Inspection - Eyes Eye exam: Normal Appearance - ENT ENT Exam: Normal External Ear Exam External Ear Exam: Normal External Inspection TM/Canal Exam: Bilateral Normal Nose Exam: Normal Nose Exam Mouth Exam: Normal Inspection Throat Exam: Normal Inspection - Neck Neck Exam: Normal Inspection - Chest Chest Inspection: Symmetric Chest Wall Rise - Respiratory Respiratory Exam: Normal Lung Sounds Bilat Respiratory Exam: Bilateral Clear to Auscultation - Cardiovascular Cardiovascular Exam: Regular Rate, Normal Rhythm, Normal Heart Sounds - Abdominal Exam Abdominal Exam: Normal Bowel Sounds, Soft, Tenderness Abdominal Tenderness: Diffuse, Moderate - Extremities Extremities Exam: Normal Inspection - Back Back Exam: Normal Inspection - Neurologic Neurological Exam: Alert, Oriented X3 - Psychiatric Psychiatric Exam: Normal Affect, Normal Mood - Skin Skin Exam: Normal Color MDM - Additional Information Additional Information Obtained From: Family - Differential Diagnosis Differential Diagnosis: ABDOMINAL PAIN, DIABETIV GASTROPARESIS. Course - Treatment Treatment: SEE ORDERS. IV MEDS AND IV FLUIDS IN ED. - Reevaluation 1st: Improved - Education/Counseling Education/Counseling: Patient, Family, Education Educated On: Treatment, Diagnosis, Needs for Follow Up ROR - Labs Reviewed Laboratory Results Reviewed?: Yes Result Diagrams: 10/18/17 03:55 10/18/17 03:55 Laboratory: WBC 7.6 X10^3/uL (3.6-10.0) 10/18/17 03:55 RBC 4.64 X10^6/uL (3.5-5.4) 10/18/17 03:55 Hgb 9.8 g/dL (12.0-16.0) L 10/18/17 03:55 Hct 31.5 % (36.0-47.0) L 10/18/17 03:55 MCV 67.8 fL (80.0-100.0) L 10/18/17 03:55 MCH 21.1 pg (27.0-34.0) L 10/18/17 03:55 MCHC 31.1 g/dL (33.0-35.0) L 10/18/17 03:55 RDW 18.0 % (11.6-16.5) H 10/18/17 03:55 Plt Count 282 X10^3/uL (150.0-450.0) 10/18/17 03:55 Plt Count Comment Adequate (ADEQUATE) 10/18/17 03:55 MPV 8.4 fL (7.4-11.0) 10/18/17 03:55 Neut % 71.4 % (42.0-75.0) 10/18/17 03:55 Lymph % 15.0 % (21.0-51.0) L 10/18/17 03:55 [place] % 11.1 % (0.0-13.0) 10/18/17 03:55 Eos % 1.6 % (0.9-2.9) 10/18/17 03:55 Baso % 0.9 % (0.2-1.0) 10/18/17 03:55 Neut # 5.4 x10^3/uL (2.2-4.8) H 10/18/17 03:55 Lymph # 1.1 X10^3/uL (1.3-2.9) L 10/18/17 03:55 [place] # 0.8 x10^3/uL (0.3-0.8) 10/18/17 03:55 Eos # 0.1 x10^3/uL (0.0-0.2) 10/18/17 03:55 Baso # 0.1 X10^3/uL (0.0-0.1) 10/18/17 03:55 Absolute Nucleated RBC 0.0 /100WBC 10/18/17 03:55 Plt Morphology Comment Normal (NORMAL) 10/18/17 03:55 RBC Morphology Abnormal (NORMAL) A 10/18/17 03:55 Hypochromasia 2+ A 10/18/17 03:55 Microcytosis 1+ A 10/18/17 03:55 Sodium 137 mmol/L (136-145) 10/18/17 03:55 Corrected Sodium 138 mmol/L (136-145) 10/18/17 03:55 Potassium 4.1 mmol/L (3.5-5.1) 10/18/17 03:55 Chloride 103 mmol/L (98-107) 10/18/17 03:55 Carbon Dioxide 22.5 mmol/L (21-32) 10/18/17 03:55 BUN 8 mg/dL (7-18) 10/18/17 03:55 Creatinine 0.68 mg/dL (0.55-1.02) 10/18/17 03:55 Est GFR (MDRD) Af Amer > 60 (>60) 10/18/17 03:55 Est GFR (MDRD) Non-Af > 60 (>60) 10/18/17 03:55 Glucose 153 mg/dL (65-99) H 10/18/17 03:55 Calcium 8.7 mg/dL (8.5-10.1) 10/18/17 03:55 Corrected Calcium TNP 10/18/17 03:55 Total Bilirubin 0.60 mg/dL (0.2-1.0) 10/18/17 03:55 AST 18 Units/L (15-37) 10/18/17 03:55 ALT 25 Units/L (12-78) 10/18/17 03:55 Alkaline Phosphatase 101 Units/L (46-116) 10/18/17 03:55 Total Protein 7.3 g/dL (6.4-8.2) 10/18/17 03:55 Albumin 4.0 g/dL (3.4-5.0) 10/18/17 03:55 Globulin 3.3 g/dL (2.5-4.5) 10/18/17 03:55 Albumin/Globulin Ratio 1.2 Ratio (1.1-2.1) 10/18/17 03:55 Amylase 16 Units/L (25-115) L 10/18/17 03:55 Lipase 89 Units/L (73-393) 10/18/17 03:55 Specimen Type Clean catch urine 10/18/17 07:12 Urine Color Yellow (YELLOW) 10/18/17 07:12 Urine Appearance Clear (CLEAR) 10/18/17 07:12 Urine pH 1.015 (5.0 - 8.0) 10/18/17 07:12 Ur Specific [place] 1.005 (1.000-1.030) 10/18/17 07:12 Urine Protein Negative (NEGATIVE) 10/18/17 07:12 Urine Glucose (UA) 4+ (NEGATIVE) 10/18/17 07:12 Urine Ketones 2+ (NEGATIVE) 10/18/17 07:12 Urine Occult Blood Negative (NEGATIVE) 10/18/17 07:12 Urine Nitrite Negative (NEGATIVE) 10/18/17 07:12 Urine Bilirubin Negative (NEGATIVE) 10/18/17 07:12 Urine Urobilinogen Normal (NORMAL) 10/18/17 07:12 Ur Leukocyte Esterase Negative (NEGATIVE) 10/18/17 07:12 Urine RBC 0-3 /HPF (NEGATIVE) 10/18/17 07:12 Urine WBC 0-3 /HPF (NEGATIVE) 10/18/17 07:12 Ur Squamous Epith Cells Few /HPF (NEGATIVE) 10/18/17 07:12 Urine Bacteria Negative /HPF (NEGATIVE) 10/18/17 07:12 Ur Culture Indicated? No/not indicated 10/18/17 07:12 - XRAY XRAY Interpreted by: Radiologist XRAY Findings: REPORT DISCUSS WITH PATIENT. - Diagnosis Discharge Problem: Gastroparesis due to DM Abdominal pain Qualifiers: Abdominal location: generalized Qualified Code(s): R10.84 - Generalized abdominal pain - Discharge Plan Condition: Stable - Follow ups/Referrals Follow ups/Referrals: LOW RESENDIZ [Primary Care Provider] - 3 days - Instructions Instructions: Abdominal Pain, Adult, [id number], Gastroparesis Additional Instructions: RETURN TO ED IF WORSE.
[2017-10-18] MEDS ORDERED: DILAUDID INJ ONE ×2 (04:19→07:58)
[2017-10-18 04:25] LABS: BASOPHILS # (AUTO) 0.1 X10^3/uL (0.0-0.1); BASOPHILS % (AUTO) 0.9 % (0.2-1.0); EOSINOPHILS # (AUTO) 0.1 x10^3/uL (0.0-0.2); EOSINOPHILS % (AUTO) 1.6 % (0.9-2.9); HEMATOCRIT 31.5 % (36.0-47.0); HEMOGLOBIN 9.8 g/dL (12.0-16.0); LYMPHOCYTES # (AUTO) 1.1 X10^3/uL (1.3-2.9); MEAN CORPUSCULAR HEMOGLOBIN 21.1 pg (27.0-34.0); MEAN CORPUSCULAR HGB CONC 31.1 g/dL (33.0-35.0); MEAN CORPUSCULAR VOLUME 67.8 fL (80.0-100.0); MEAN PLATELET VOLUME 8.4 fL (7.4-11.0); MONOCYTES # (AUTO) 0.8 x10^3/uL (0.3-0.8); MONOCYTES % (AUTO) 11.1 % (0.0-13.0); NEUTROPHILS # (AUTO) 5.4 x10^3/uL (2.2-4.8); NEUTROPHILS % (AUTO) 71.4 % (42.0-75.0); PLATELET COUNT 282 X10^3/uL (150.0-450.0); RED BLOOD COUNT 4.64 X10^6/uL (3.5-5.4); WHITE BLOOD COUNT 7.6 X10^3/uL (3.6-10.0)
[2017-10-18 04:34] LABS: ALANINE AMINOTRANSFERASE 25 Units/L (12-78); ALKALINE PHOSPHATASE 101 Units/L (46-116); AMYLASE 16 Units/L (25-115); ASPARTATE AMINO TRANSFERASE 18 Units/L (15-37); BLOOD UREA NITROGEN 8 mg/dL (7-18); CALCIUM 8.7 mg/dL (8.5-10.1); CARBON DIOXIDE 22.5 mmol/L (21-32); CHLORIDE 103 mmol/L (98-107); COR NA(FOR HYPERGLY) 138 mmol/L (136-145); CREATININE 0.68 mg/dL (0.55-1.02); LIPASE 89 Units/L (73-393); SODIUM 137 mmol/L (136-145); TOTAL PROTEIN 7.3 g/dL (6.4-8.2); eGFR BLACK RACES > 60 (>60); eGFR NON BLACK RACES > 60 (>60)
[2017-10-18 05:03] LABS: HYPOCHROMASIA 2+; MICROCYTOSIS 1+; PLATELET MORPHOLOGY COMMENT NORMAL (NORMAL)
[2017-10-18] MEDS ORDERED: PHENERGAN INJ 25 MG IVP ONE (05:49)
[2017-10-18 07:26] LABS: APPEARANCE,URINE CLEAR (CLEAR); COLOR,URINE YELLOW (YELLOW); PROTEIN,URINE NEGATIVE (NEGATIVE)
[2017-10-18 07:27] LABS: BACTERIA,URINE NEGATIVE /HPF (NEGATIVE); BILIRUBIN,URINE NEGATIVE (NEGATIVE); BLOOD/HEMOGLOBIN,URINE NEGATIVE (NEGATIVE); GLUCOSE, URINE 4+ (NEGATIVE); KETONES,URINE 2+ (NEGATIVE); LEUKOCYTE ESTERASE ,URINE NEGATIVE (NEGATIVE); NITRITES,URINE NEGATIVE (NEGATIVE); RBC,URINE 0-3 /HPF (NEGATIVE); SQUAMOUS EPITHELIAL CELL,UR FEW /HPF (NEGATIVE); UROBILINOGEN,URINE NORMAL (NORMAL)
--- NOTE | 2017-10-18 07:33 | RAD ---
HISTORY: Nausea and vomiting Study: Acute abdominal series Comparison: 09/22/2017. Findings: The trachea is midline. The cardiac silhouette is unremarkable. There are median sternotomy sutures from thoracotomy. A left-sided Port-A-Cath is present inserted via an internal jugular approach with the tip of the catheter in the mid SVC. The lungs are clear without focal infiltrate or effusion. T he bony thorax is unremarkable. Flat plate and upright evaluation of the abdomen demonstrates a fairly large amount of stool present throughout the colon. No bowel obstruction or perforation is seen. There is no evidence of free intra peritoneal air or fluid.. No pathological soft tissue mass or calcification can be observed. The [place] structures are grossly intact. IMPRESSION: 1. No acute cardiopulmonary disease. 2. Large amount of stool present throughout the colon. No evidence of bowel obstruction or perforati on is seen. Reported By:
[2017-10-18 07:44] VITALS: BP 132/88
== END 2017-10-18 08:08 | disposition home or self-care (01) ==
LOC: ER 03:38
DX: E11.43 Type 2 diabetes mellitus with diabetic autonomic (poly)neuropathy (principal); R10.84 Generalized abdominal pain
CPT/HCPCS: 36415; 74022; 80053; 81001; 82150; 83690; 85025; 96365; 96374; 96375; 99282; 99283; 99285; J1170; J2550

== ENCOUNTER 2017-11-30 22:46 | Emergency (ER) | payer BC, OTHER ==
[2017-11-30 22:55] VITALS: BMI 23.8
--- NOTE | 2017-11-30 23:20 | DR.GENAD ---
HPI - PCP Primary Care Physician: Guevara - HPI Comment HPI Comment: UNABLE TO KEEP DOWN MEDICATIONS AT HOME. MAY BE DEHYDRATED. - Complaint/Symptoms Chief Complaint Doctors Comments: FEELING SICK TIMES 2 DAYS AND FLARE UP OF GASTROPARESIS WITH N/V TODAY. WORSE TONIGHT. NO FEVER. GLUCOSE WAS RUNNING NORMAL. Chief Complaint:: Gastroparesis Self Treatment fo Chief Complaint: Patient has been feeling bad for the last two days but just started throwing up this evening. - Nurses notes reviewed Nurses Notes Review: Yes - Source History Provided: Patient - Mode of Arrival Mode of Arrival: Ambulatory - Timing Onset of Chief Complaint: 11/30/17 Came on: Suddenly - Duration Duration: Since Onset Duration: Days - Severity Severity: Moderate PMH - PMH Past Medical History: Yes Past Medical History: Diabetes Past Medical History Comment: Gastroparesis Past Surgical History: Yes Surgical History: Appendectomy Past Surgical History Comment: Open heart - Family History History of Family Medical Conditions: No Family Medical History: Diabetes Mellitus - Social History Does patient currently use any type of tobacco product: No Have you used tobacco products in the last 12 months: No Type of Tobacco Use: None Does any household member use tobacco: No Alcohol Use: None Do you use any recreational Drugs:: No Lives With: Family Lives Where: Home - infectious screening In the last 2 months have you had wt loss of >10#?: NO Have you had fever, night sweats or hemotysis?: No Have you traveled outside the country in the last 6 months?: No Isolation: Standard ROS - Review of Systems Constitutional: Weakness, Fatigue. negative: Chills, Fever Eyes: No Symptoms Reported. negative: Eye Pain, Discharge ENTM: No Symptoms Reported. negative: Ear Pain, Nose Discharge, Nose Congestion , Throat Pain Respiratoy: Non-Productive Cough, Short of Breath. negative: Wheezing, Hemoptysis Cardiovascular: No Symptoms Reported. negative: Edema Gastrointestinal/Abdominal: Abdominal Pain, Nausea, Vomiting Genitourinary: No Symptoms Reported. negative: Dysuria, Frequency, Hematuria Neurological: No Symptoms Reported, Headache, Weakness, Dizziness Musculoskeletal: Muscle Pain Integumentary: No Symptoms Reported. negative: Rash, Juandice Hematologic/Lymphatic: No Symptoms Reported Endocrine: Flushing, Increased Thirst All Other Systems: Reviewed and Negative PE - Vital Signs Vitals: Temperature 98.1 F Pulse Rate [Left] 100 Pulse Rate 115 Respiratory Rate 18 Blood Pressure [Left Arm] 123/83 Blood Pressure [Right Arm] 120/69 Blood Pressure 173/93 O2 Sat by Pulse Oximetry 100 - General Limitations: No Limitations General Appearance: Alert - Head Head Exam: Normal Inspection - Eyes Eye exam: Normal Appearance - ENT ENT Exam: Normal External Ear Exam External Ear Exam: Normal External Inspection TM/Canal Exam: Bilateral Normal Nose Exam: Normal Nose Exam Mouth Exam: Normal Inspection Throat Exam: Normal Inspection - Neck Neck Exam: Trachea Midline - Chest Chest Inspection: Normal Inspection - Respiratory Respiratory Exam: Normal Lung Sounds Bilat Respiratory Exam: Bilateral Clear to Auscultation - Cardiovascular Cardiovascular Exam: Regular Rate, Normal Rhythm, Normal Heart Sounds - Abdominal Exam Abdominal Exam: Normal Bowel Sounds, Soft, Tenderness Abdominal Tenderness: Diffuse, Moderate - Extremities Extremities Exam: Normal Inspection - Back Back Exam: Normal Inspection - Neurologic Neurological Exam: Alert, Oriented X3 - Psychiatric Psychiatric Exam: Anxious - Skin Skin Exam: Normal Color MDM - Additional Information Additional Information Obtained From: Family - Differential Diagnosis Differential Diagnosis: DIABETIC GASTROPARESIS, ABDOMINAL PAIN, N/V, UTI Course - Treatment Treatment: SEE ORDERS. NS IV BOLUS, PHENERGAN ABD DILAUDID IV AND ZOFRAN IV IN ED. AFTER REPEAT PHENERGAN, PATIENT IS IMPROVING. WILL D/C HOME. - Education/Counseling Education/Counseling: Patient, Family, Education Educated On: Treatment, Diagnosis ROR - Labs Reviewed Laboratory Results Reviewed?: Yes Result Diagrams: 11/30/17 23:37 11/30/17 23:37 Laboratory: WBC 8.2 X10^3/uL (3.6-10.0) 11/30/17 23:37 RBC 4.87 X10^6/uL (3.5-5.4) 11/30/17 23:37 Hgb 10.0 g/dL (12.0-16.0) L 11/30/17 23:37 Hct 31.9 % (36.0-47.0) L 11/30/17 23:37 MCV 65.5 fL (80.0-100.0) L 11/30/17 23:37 MCH 20.6 pg (27.0-34.0) L 11/30/17 23:37 MCHC 31.4 g/dL (33.0-35.0) L 11/30/17 23:37 RDW 18.5 % (11.6-16.5) H 11/30/17 23:37 Plt Count 326 X10^3/uL (150.0-450.0) 11/30/17 23:37 Plt Count Comment Adequate (ADEQUATE) 11/30/17 23:37 MPV 8.2 fL (7.4-11.0) 11/30/17 23:37 Neut % 75.5 % (42.0-75.0) H 11/30/17 23:37 Lymph % 15.4 % (21.0-51.0) L 11/30/17 23:37 [place] % 7.6 % (0.0-13.0) 11/30/17 23:37 Eos % 0.2 % (0.9-2.9) L 11/30/17 23:37 Baso % 1.3 % (0.2-1.0) H 11/30/17 23:37 Neut # 6.2 x10^3/uL (2.2-4.8) H 11/30/17 23:37 Lymph # 1.3 X10^3/uL (1.3-2.9) 11/30/17 23:37 [place] # 0.6 x10^3/uL (0.3-0.8) 11/30/17 23:37 Eos # 0.0 x10^3/uL (0.0-0.2) 11/30/17 23:37 Baso # 0.1 X10^3/uL (0.0-0.1) 11/30/17 23:37 Absolute Nucleated RBC 0.1 /100WBC 11/30/17 23:37 Plt Morphology Comment Normal (NORMAL) 11/30/17 23:37 RBC Morphology Abnormal (NORMAL) A 11/30/17 23:37 Hypochromasia 2+ A 11/30/17 23:37 Microcytosis 1+ A 11/30/17 23:37 Sodium 140 mmol/L (136-145) 11/30/17 23:37 Corrected Sodium 142 mmol/L (136-145) 11/30/17 23:37 Potassium 3.8 mmol/L (3.5-5.1) 11/30/17 23:37 Chloride 104 mmol/L (98-107) 11/30/17 23:37 Carbon Dioxide 26.1 mmol/L (21-32) 11/30/17 23:37 BUN 12 mg/dL (7-18) 11/30/17 23:37 Creatinine 1.00 mg/dL (0.55-1.02) 11/30/17 23:37 Est GFR (MDRD) Af Amer > 60 (>60) 11/30/17 23:37 Est GFR (MDRD) Non-Af > 60 (>60) 11/30/17 23:37 Glucose 168 mg/dL (65-99) H 11/30/17 23:37 Calcium 8.8 mg/dL (8.5-10.1) 11/30/17 23:37 Corrected Calcium TNP 11/30/17 23:37 Total Bilirubin 0.90 mg/dL (0.2-1.0) 11/30/17 23:37 AST 15 Units/L (15-37) 11/30/17 23:37 ALT 24 Units/L (12-78) 11/30/17 23:37 Alkaline Phosphatase 97 Units/L (46-116) 11/30/17 23:37 Total Protein 7.8 g/dL (6.4-8.2) 11/30/17 23:37 Albumin 4.0 g/dL (3.4-5.0) 11/30/17 23:37 Globulin 3.8 g/dL (2.5-4.5) 11/30/17 23:37 Albumin/Globulin Ratio 1.1 Ratio (1.1-2.1) 11/30/17 23:37 Amylase 15 Units/L (25-115) L 11/30/17 23:37 Lipase 76 Units/L (73-393) 11/30/17 23:37 Acetone, Semi-Quant Negative (NEGATIVE) 11/30/17 23:37 - Diagnosis Discharge Problem: Gastroparesis due to DM, Abdominal pain, Diabetes mellitus type I - Discharge Plan Condition: Stable - Follow ups/Referrals Follow ups/Referrals: NFD,None [Primary Care Provider] - 1 day - Instructions Instructions: Nausea and Vomiting, Adult, [id number], Abdominal Pain, Adult, [id number], Gastroparesis Additional Instructions: RETURN TO ED IF WORSE.
[2017-11-30] MEDS ORDERED: NS 1000 ML 1,000 ML IV ONE (23:28)
[2017-11-30] MEDS ORDERED: PHENERGAN INJ 25 MG IV ONE (23:29)
[2017-11-30] MEDS ORDERED: DILAUDID INJ IVP PRN (23:29)
[2017-11-30] MEDS ORDERED: PHENERGAN INJ 25 MG ONE (23:40)
[2017-11-30] MEDS ORDERED: NS 1000 ML 1,000 ML ONE (23:40)
[2017-11-30 23:49] LABS: BASOPHILS # (AUTO) 0.1 X10^3/uL (0.0-0.1); BASOPHILS % (AUTO) 1.3 % (0.2-1.0); EOSINOPHILS % (AUTO) 0.2 % (0.9-2.9); HEMATOCRIT 31.9 % (36.0-47.0); LYMPHOCYTES # (AUTO) 1.3 X10^3/uL (1.3-2.9); LYMPHOCYTES % (AUTO) 15.4 % (21.0-51.0); MEAN CORPUSCULAR HEMOGLOBIN 20.6 pg (27.0-34.0); MEAN CORPUSCULAR HGB CONC 31.4 g/dL (33.0-35.0); MEAN CORPUSCULAR VOLUME 65.5 fL (80.0-100.0); MEAN PLATELET VOLUME 8.2 fL (7.4-11.0); MONOCYTES # (AUTO) 0.6 x10^3/uL (0.3-0.8); MONOCYTES % (AUTO) 7.6 % (0.0-13.0); NEUTROPHILS # (AUTO) 6.2 x10^3/uL (2.2-4.8); NEUTROPHILS % (AUTO) 75.5 % (42.0-75.0); PLATELET COUNT 326 X10^3/uL (150.0-450.0); RED BLOOD COUNT 4.87 X10^6/uL (3.5-5.4); RED CELL DISTRIBUTION WIDTH 18.5 % (11.6-16.5); WHITE BLOOD COUNT 8.2 X10^3/uL (3.6-10.0)
[2017-11-30] MEDS ORDERED: DILAUDID INJ ONE (23:54)
[2017-11-30 23:57] LABS: ALANINE AMINOTRANSFERASE 24 Units/L (12-78); ALKALINE PHOSPHATASE 97 Units/L (46-116); AMYLASE 15 Units/L (25-115); ASPARTATE AMINO TRANSFERASE 15 Units/L (15-37); BLOOD UREA NITROGEN 12 mg/dL (7-18); CALCIUM 8.8 mg/dL (8.5-10.1); CARBON DIOXIDE 26.1 mmol/L (21-32); CHLORIDE 104 mmol/L (98-107); COR NA(FOR HYPERGLY) 142 mmol/L (136-145); LIPASE 76 Units/L (73-393); SODIUM 140 mmol/L (136-145); TOTAL PROTEIN 7.8 g/dL (6.4-8.2); eGFR BLACK RACES > 60 (>60); eGFR NON BLACK RACES > 60 (>60)
[2017-12-01 00:06] LABS: SERUM ACETONE NEGATIVE (NEGATIVE)
[2017-12-01 00:18] LABS: HYPOCHROMASIA 2+; MICROCYTOSIS 1+; PLATELET MORPHOLOGY COMMENT NORMAL (NORMAL)
[2017-12-01] MEDS ORDERED: ZOFRAN INJ 4 MG VIAL ONE (00:41)
[2017-12-01] MEDS ORDERED: ZOFRAN INJ 4 MG VIAL IVP ONE ×2 (00:41→00:42)
[2017-12-01] MEDS ORDERED: PHENERGAN INJ 25 MG IV ONE (03:03)
[2017-12-01] MEDS ORDERED: PHENERGAN INJ 25 MG ONE (03:05)
[2017-12-01 03:48] VITALS: BP 122/70
== END 2017-12-01 03:45 | disposition home or self-care (01) ==
LOC: ER 22:46
DX: K31.84 Gastroparesis (principal); R10.84 Generalized abdominal pain
CPT/HCPCS: 36415; 80053; 82009; 82150; 83690; 85025; 96365; 96374; 96375; 99283; J1170; J2405; J2550

== ENCOUNTER 2018-02-20 15:56 | Emergency (ER) | payer BC, OTHER ==
[2018-02-20 16:00] VITALS: BP 124/71; BMI 23.8
--- NOTE | 2018-02-20 16:05 | DR.NAUSEAF ---
HPI - Time Seen Time seen: 16:00 - Primary Care Physician Primary Care Physician: MARTÍN - HPI Comment HPI Comment: WORSE TODAY. NOT ABLE TO KEEP DOWN FLUIDS OR FOOD. HISTORY DIABETIC GASTROPARESIS. WAS TREATED IN THE HOSPITAL FEW DAYS AGO. WENT HOME AND CONTINUE TO THROW UP. NO FEVER. - Complaints Chief Complaint Doctors Comments: N/V/B AND ABDOMINAL PAIN TIMES 2 DAYS. Chief Complaint:: PT. C/O N/V AND ABDOMINAL PAIN. VOMITING BEGAN ON TUESDAY. PT. VOMITING IN TRIAGE. - Reviewed Nurses Notes Reviewed: Yes - Source History Provided: Patient - Mode of Arrival Mode of Arrival: Ambulatory - Timing Onset of Chief Complaint: 02/18/18 - Context Onset: Spontaneous Recent: None : No History of: Diabetes - Quality Quality: Bilious - Associated Signs and Symptoms Abdominal Pain Quality: Cramping Abdominal Pain Location: Diffuse Symptoms: Abdominal Pain, Anorexia PMH - PMH Past Medical History: Yes Past Medical History: Diabetes Past Medical History Comment: GASTROPARESIS Past Surgical History: Yes Surgical History: Appendectomy, Other Past Surgical History Comment: PORT A CATH - Family History History of Family Medical Conditions: Yes Family Medical History: Diabetes Mellitus - Social History Does patient currently use any type of tobacco product: No Have you used tobacco products in the last 12 months: No Type of Tobacco Use: None Does any household member use tobacco: No Alcohol Use: None Do you use any recreational Drugs:: No Lives With: Spouse Lives Where: Home - infectious screening In the last 2 months have you had wt loss of >10#?: NO Have you had fever, night sweats or hemotysis?: No Have you traveled outside the country in the last 6 months?: No Isolation: Standard ROS - Review of Systems Constitutional: Weakness, Fatigue, Loss of Appetite. negative: Chills, Fever Eyes: No Symptoms Reported. negative: Eye Pain, Discharge ENTM: No Symptoms Reported. negative: Ear Pain, Nose Discharge, Nose Congestion , Throat Pain Respiratoy: Short of Breath (ON EXERTION). negative: Productive Cough, Non- Productive Cough, Wheezing, Hemoptysis Cardiovascular: Chest Pain, Palpitations. negative: Edema Gastrointestinal/Abdominal: Abdominal Pain, Nausea, Vomiting Genitourinary: Dysuria. negative: Frequency, Hematuria Neurological: Headache, Weakness, Dizziness Musculoskeletal: Muscle Pain Integumentary: Dryness Hematologic/Lymphatic: No Symptoms Reported Endocrine: Increased Thirst, Increased Urine. negative: Flushing All Other Systems: Reviewed and Negative PE - Vital Signs Vitals: Temperature 98.5 F Pulse Rate 126 Respiratory Rate 20 Blood Pressure [Left Arm] 122/70 Blood Pressure [Right Arm] 120/69 Blood Pressure 124/71 O2 Sat by Pulse Oximetry 99 - General Limitations: No Limitations General Appearance: Alert - Head Head Exam: Normal Inspection - Eyes Eye exam: Normal Appearance - ENT ENT Exam: Normal External Ear Exam - Neck Neck Exam: Trachea Midline - Chest Chest Inspection: Symmetric Chest Wall Rise - Respiratory Respiratory Exam: Normal Lung Sounds Bilat Respiratory Exam: Bilateral Clear to Auscultation - Cardiovascular Cardiovascular Exam: Regular Rate, Normal Rhythm, Normal Heart Sounds - Abdominal Exam Abdominal Exam: Normal Bowel Sounds, Soft. negative: Tenderness - Rectal Rectal Exam: Deferred - External Exam: Female: Deferred : Speculum Exam (Female): Deferred : Bimanual Exam (female): Deferred - Extremities Extremities Exam: Normal Inspection - Back Back Exam: Normal Inspection - Neurologic Neurological Exam: Alert, Oriented X3 - Psychiatric Psychiatric Exam: Anxious - Skin Skin Exam: Dry MDM - Additional Information Obtained Additional Information Obtained From: Family - Differential Diagnosis Differential Diagnosis: Considerations may Include:: Bowel Obstruction, Gastritis, Gastroenteritis, Pancreatitis, PUD, Urinary Tract Infection, Urolithiasis Course - Treatment Treatment: SEE ORDERS. - Education/Counseling Education/Counseling: Patient Educated On: Treatment ROR - Labs Reviewed Laboratory Results Reviewed?: Yes Result Diagrams: 02/20/18 16:08 02/20/18 16:08 Laboratory: WBC 19.8 X10^3/uL (3.6-10.0) H 02/20/18 16:08 RBC 5.44 X10^6/uL (3.5-5.4) H 02/20/18 16:08 Hgb 10.7 g/dL (12.0-16.0) L 02/20/18 16:08 Hct 34.7 % (36.0-47.0) L 02/20/18 16:08 MCV 63.8 fL (80.0-100.0) L 02/20/18 16:08 MCH 19.6 pg (27.0-34.0) L 02/20/18 16:08 MCHC 30.8 g/dL (33.0-35.0) L 02/20/18 16:08 RDW 18.9 % (11.6-16.5) H 02/20/18 16:08 Plt Count 343 X10^3/uL (150.0-450.0) 02/20/18 16:08 Plt Count Comment Adequate (ADEQUATE) 02/20/18 16:08 MPV 8.2 fL (7.4-11.0) 02/20/18 16:08 Neut % (Auto) 86.9 % (42.0-75.0) H 02/20/18 16:08 Lymph % (Auto) 7.0 % (21.0-51.0) L 02/20/18 16:08 [place] % (Auto) 5.5 % (0.0-13.0) 02/20/18 16:08 Eos % (Auto) 0.0 % (0.9-2.9) L 02/20/18 16:08 Baso % (Auto) 0.6 % (0.2-1.0) 02/20/18 16:08 Neut # (Auto) 17.2 x10^3/uL (2.2-4.8) H 02/20/18 16:08 Lymph # (Auto) 1.4 X10^3/uL (1.3-2.9) 02/20/18 16:08 [place] # (Auto) 1.1 x10^3/uL (0.3-0.8) H 02/20/18 16:08 Eos # (Auto) 0.0 x10^3/uL (0.0-0.2) 02/20/18 16:08 Baso # (Auto) 0.1 X10^3/uL (0.0-0.1) 02/20/18 16:08 Absolute Nucleated RBC 0.0 /100WBC 02/20/18 16:08 Plt Morphology Comment Normal (NORMAL) 02/20/18 16:08 RBC Morphology Abnormal (NORMAL) A 02/20/18 16:08 Hypochromasia 3+ A 02/20/18 16:08 Anisocytosis 1+ A 02/20/18 16:08 Microcytosis 2+ A 02/20/18 16:08 Sample Site Right radial 02/20/18 18:06 ABG pH 7.470 (7.35-7.45) H 02/20/18 18:06 ABG pCO2 38.0 mmHg (35.0-45.0) 02/20/18 18:06 ABG pO2 84.0 mmHg (80.0-100.0) 02/20/18 18:06 ABG HCO3 27.7 mmol/L (22-26) H 02/20/18 18:06 ABG O2 Saturation 97.0 % (90-100) 02/20/18 18:06 ABG Base Excess 3.9 mmol/L (-2.0-2.0) H 02/20/18 18:06 Jian Test Pos 02/20/18 18:06 A-a Gradient 18.0 mmHg 02/20/18 18:06 FiO2 21.000 02/20/18 18:06 Blood Gas Comments Stephen well aw 02/20/18 18:06 Sodium 138 mmol/L (136-145) 02/20/18 16:08 Corrected Sodium 140 mmol/L (136-145) 02/20/18 16:08 Potassium 3.0 mmol/L (3.5-5.1) L* 02/20/18 16:08 Chloride 97 mmol/L (98-107) L 02/20/18 16:08 Carbon Dioxide 27.2 mmol/L (21-32) 02/20/18 16:08 BUN 19 mg/dL (7-18) H 02/20/18 16:08 Creatinine 0.90 mg/dL (0.55-1.02) 02/20/18 16:08 Est GFR (MDRD) Af Amer > 60 (>60) 02/20/18 16:08 Est GFR (MDRD) Non-Af > 60 (>60) 02/20/18 16:08 Glucose 173 mg/dL (65-99) H 02/20/18 16:08 Calcium 8.3 mg/dL (8.5-10.1) L 02/20/18 16:08 Corrected Calcium TNP 02/20/18 16:08 Total Bilirubin 1.40 mg/dL (0.2-1.0) H 02/20/18 16:08 AST 11 Units/L (15-37) L 02/20/18 16:08 ALT 21 Units/L (12-78) 02/20/18 16:08 Alkaline Phosphatase 124 Units/L (46-116) H 02/20/18 16:08 Total Protein 8.6 g/dL (6.4-8.2) H 02/20/18 16:08 Albumin 4.2 g/dL (3.4-5.0) 02/20/18 16:08 Globulin 4.4 g/dL (2.5-4.5) 02/20/18 16:08 Albumin/Globulin Ratio 1.0 Ratio (1.1-2.1) L 02/20/18 16:08 Amylase 18 Units/L (25-115) L 02/20/18 16:08 Lipase 72 Units/L (73-393) L 02/20/18 16:08 Specimen Type Clean catch urine 02/20/18 19:32 Urine Color Yellow (YELLOW) 02/20/18 19:32 Urine Appearance Clear (CLEAR) 02/20/18 19:32 Urine pH 6.0 (5.0 - 8.0) 02/20/18 19:32 Ur Specific [place] 1.020 (1.000-1.030) 02/20/18 19:32 Urine Protein 2+ (NEGATIVE) 02/20/18 19:32 Urine Glucose (UA) 4+ (NEGATIVE) 02/20/18 19:32 Urine Ketones 4+ (NEGATIVE) 02/20/18 19:32 Urine Occult Blood 1+ (NEGATIVE) 02/20/18 19:32 Urine Nitrite Negative (NEGATIVE) 02/20/18 19:32 Urine Bilirubin Negative (NEGATIVE) 02/20/18 19:32 Urine Urobilinogen Normal (NORMAL) 02/20/18 19:32 Ur Leukocyte Esterase 1+ (NEGATIVE) 02/20/18 19:32 Urine RBC 0-2 /HPF (NONE SEEN) 02/20/18 19:32 Urine WBC 0-2 /HPF (NONE SEEN) 02/20/18 19:32 Ur Squamous Epith Cells Moderate /HPF (NEGATIVE) 02/20/18 19:32 Urine Bacteria Trace /HPF (NEGATIVE) 02/20/18 19:32 Ur Culture Indicated? No/not indicated 02/20/18 19:32 Acetone, Semi-Quant Small (NEGATIVE) H 02/20/18 16:08 - XRAY XRAY Findings: REPORT DISCUSS WITH PATIENT. - Diagnosis Discharge Problem: Nausea and vomiting in adult patient, Gastroparesis due to DM Abdominal pain Qualifiers: Abdominal location: generalized Qualified Code(s): R10.84 - Generalized abdominal pain Leukocytosis Qualifiers: Leukocytosis type: unspecified Qualified Code(s): D72.829 - Elevated white blood cell count, unspecified - Discharge Plan Disposition: 01 HOME, SELF-CARE Condition: Stable - Follow ups/Referrals Follow ups/Referrals: LOW RESENDIZ [Primary Care Provider] - 02/21/18 - Instructions Instructions: Gastritis, Adult, [id number], Abdominal Pain, Adult, Leukocytosis, Nausea and Vomiting, Adult, [id number], Gastroparesis Additional Instructions: RETURN TO ED IF WORSE.
[2018-02-20] MEDS ORDERED: ZOFRAN INJ 4 MG VIAL IM ONE (16:09)
[2018-02-20] MEDS ORDERED: PEPCID TAB 20 MG PO ONE (16:10)
[2018-02-20 16:22] LABS: BASOPHILS # (AUTO) 0.1 X10^3/uL (0.0-0.1); BASOPHILS % (AUTO) 0.6 % (0.2-1.0); HEMATOCRIT 34.7 % (36.0-47.0); HEMOGLOBIN 10.7 g/dL (12.0-16.0); LYMPHOCYTES # (AUTO) 1.4 X10^3/uL (1.3-2.9); MEAN CORPUSCULAR HEMOGLOBIN 19.6 pg (27.0-34.0); MEAN CORPUSCULAR HGB CONC 30.8 g/dL (33.0-35.0); MEAN CORPUSCULAR VOLUME 63.8 fL (80.0-100.0); MEAN PLATELET VOLUME 8.2 fL (7.4-11.0); MONOCYTES # (AUTO) 1.1 x10^3/uL (0.3-0.8); MONOCYTES % (AUTO) 5.5 % (0.0-13.0); NEUTROPHILS # (AUTO) 17.2 x10^3/uL (2.2-4.8); NEUTROPHILS % (AUTO) 86.9 % (42.0-75.0); PLATELET COUNT 343 X10^3/uL (150.0-450.0); RED BLOOD COUNT 5.44 X10^6/uL (3.5-5.4); RED CELL DISTRIBUTION WIDTH 18.9 % (11.6-16.5); WHITE BLOOD COUNT 19.8 X10^3/uL (3.6-10.0)
[2018-02-20 16:25] LABS: BLOOD UREA NITROGEN 19 mg/dL (7-18); CALCIUM 8.3 mg/dL (8.5-10.1); CARBON DIOXIDE 27.2 mmol/L (21-32); CHLORIDE 97 mmol/L (98-107); COR NA(FOR HYPERGLY) 140 mmol/L (136-145); PLATELET MORPHOLOGY COMMENT NORMAL (NORMAL); SODIUM 138 mmol/L (136-145); eGFR BLACK RACES > 60 (>60); eGFR NON BLACK RACES > 60 (>60)
[2018-02-20 16:29] LABS: ANISOCYTOSIS 1+; HYPOCHROMASIA 3+; MICROCYTOSIS 2+
[2018-02-20 16:30] LABS: ALANINE AMINOTRANSFERASE 21 Units/L (12-78); ALBUMIN 4.2 g/dL (3.4-5.0); ALKALINE PHOSPHATASE 124 Units/L (46-116); AMYLASE 18 Units/L (25-115); ASPARTATE AMINO TRANSFERASE 11 Units/L (15-37); LIPASE 72 Units/L (73-393); TOTAL PROTEIN 8.6 g/dL (6.4-8.2)
[2018-02-20] MEDS ORDERED: PEPCID 20 MG IV PREMIX* 20 MG/50 ML BAG IV ONE ×2 (16:30→16:38)
[2018-02-20] MEDS ORDERED: NS 1000 ML 1,000 ML IV ONE (16:30)
[2018-02-20] MEDS ORDERED: PHENERGAN INJ 25 MG IV ONE ×2 (16:30→21:17)
[2018-02-20] MEDS ORDERED: DILAUDID INJ IVP ONE (16:31)
[2018-02-20] MEDS ORDERED: PHENERGAN INJ 25 MG ONE ×2 (16:38→21:22)
[2018-02-20] MEDS ORDERED: NS + KCL 20 MEQ/L 1,000 ML IV ONE ×2 (16:38→16:48)
[2018-02-20] MEDS ORDERED: DILAUDID INJ ONE ×2 (16:39→21:23)
--- NOTE | 2018-02-20 18:02 | CT ---
CT ABDOMEN AND PELVIS WITHOUT CONTRAST CLINICAL HISTORY: 27-year-old female with abdominal pain. Patient status post open heart surgery, meri endectomy and section. COMPARISON: CT abdomen pelvis 01/06/2017. TECHNIQUE: Multiple contiguous computed tomographic axial images of the abdomen and pelvis were obtai syeda without the use of oral or intravenous contrast. Images were reformatted in the coronal and sagit elvin planes. FINDINGS: The lung bases demonstrate no evidence of focal air-space opacification, pleural effusion, pneumothor ax, or suspicious pulmonary nodules. The imaged inferior mediastinum and heart are normal in appeara nce without evidence of pericardial effusion. The gallbladder, pancreas, and spleen are within normal limits for noncontrast imaging. Stable small calcified nodule within the tip of the right lobe of the liver, which is otherwise unremarkable. The adrenal glands and kidneys are normal bilaterally. There are no nephroureteral stones or perineph kimo fluid collections. There is no evidence of hydroureteronephrosis and the ureters run in an unobst ructed course to a well distended urinary bladder. The uterus is anteverted and normal in size. The ovaries, vagina and perineum are within normal limi ts. Pelvic phleboliths are present. Status post appendectomy. There appears to be oral contrast throughout the colon. The bowel is withou t obstruction or inflammation and there is no free fluid or free air within the peritoneal cavity. T here are no pathologically enlarged lymph nodes in the abdomen or pelvis. The arteriovascular structures are within normal limits for a study without contrast. Prior midline laparotomy, soft tissues otherwise unremarkable. The osseous structures are intact without fracture or malalignment. IMPRESSION: 1. No acute intra-abdominal or intrapelvic process. 2. Apparent oral contrast throughout the colon, correlate with prior studies. Reported By:
[2018-02-20 18:18] LABS: ABG ALLEN TEST POS; ABG BASE EXCESS 3.9 mmol/L (-2.0-2.0); ABG HCO3 27.7 mmol/L (22-26)
[2018-02-20] MEDS ORDERED: ZOFRAN INJ 4 MG VIAL IVP ONE (18:39)
[2018-02-20] MEDS ORDERED: ZOFRAN INJ 4 MG VIAL ONE (18:43)
[2018-02-20] MEDS ORDERED: NS 1000 ML 1,000 ML ONE (19:21)
[2018-02-20 19:38] LABS: BILIRUBIN,URINE NEGATIVE (NEGATIVE); BLOOD/HEMOGLOBIN,URINE 1+ (NEGATIVE); GLUCOSE, URINE 4+ (NEGATIVE); KETONES,URINE 4+ (NEGATIVE); LEUKOCYTE ESTERASE ,URINE 1+ (NEGATIVE); NITRITES,URINE NEGATIVE (NEGATIVE); PROTEIN,URINE 2+ (NEGATIVE); UROBILINOGEN,URINE NORMAL (NORMAL)
[2018-02-20 19:50] LABS: APPEARANCE,URINE CLEAR (CLEAR); COLOR,URINE YELLOW (YELLOW)
[2018-02-20 19:51] LABS: BACTERIA,URINE TRACE /HPF (NEGATIVE); RBC,URINE 0-2 /HPF (NONE SEEN); SQUAMOUS EPITHELIAL CELL,UR MODERATE /HPF (NEGATIVE)
[2018-02-20] MEDS ORDERED: DILAUDID INJ IVP PRN (21:17)
== END 2018-02-20 22:05 | disposition home or self-care (01) ==
LOC: ER 16:13
DX: R11.2 Nausea with vomiting, unspecified (principal); E11.43 Type 2 diabetes mellitus with diabetic autonomic (poly)neuropathy; R10.84 Generalized abdominal pain; D72.829 Elevated white blood cell count, unspecified
CPT/HCPCS: 36415; 36600; 74176; 80053; 81001; 82009; 82150; 82803; 83690; 85025; 96365; 96367; 96374; 96375; 99283; 99285; A4222; S0028; J1170; J2405; J2550

== ENCOUNTER 2018-03-17 23:13 | Emergency (ER) | payer BC, OTHER ==
[2018-03-17 23:22] VITALS: BP 133/83; BMI 24.7
[2018-03-18] MEDS ORDERED: TORADOL 30 MG VIAL IVP STA (01:20)
[2018-03-18] MEDS ORDERED: NS 1000 ML 1,000 ML IV ONE (01:20)
[2018-03-18] MEDS ORDERED: ZOFRAN INJ 4 MG VIAL IVP ONE (01:21)
--- NOTE | 2018-03-18 01:22 | DR.NAUSEAF ---
HPI - Time Seen Time seen: 01:19 - Primary Care Physician Primary Care Physician: Dr. Waterman - Complaints Chief Complaint Doctors Comments: Patient is complaining of vomiting since 8am for the past 16 hours gettting worst tonight with her not being able to jung anything down. States she has phenergan but she has not been taking it because she can not keep it down. States her stomach hurts mainly in the top. She denies diarrhea, hematuria or kirt. State she has not been able to eat this evening. She denies fver, chills, cold or cough. States she is a patient of Dr. Elise and she is unsure of her last x-ray or her last appointment with Dr. Corley. Chief Complaint:: Started vomiting this morning which has became worse and is very weak - Reviewed Nurses Notes Reviewed: Yes - Source History Provided: Patient, Family Member - Mode of Arrival Mode of Arrival: Ambulatory - Timing Onset of Chief Complaint: 03/17/18 - Duration Duration: 16 - Context Onset: Spontaneous, After Eating Possible medication related (specify):: none Recent: None Possible Ingestion: Unknown : No History of: None - Quality Quality: Bilious - Associated Signs and Symptoms Abdominal Pain Quality: Aching, Cramping, Sharp Abdominal Pain Location: Epigastric Symptoms: Abdominal Pain PMH - PMH Past Medical History: Yes Past Medical History: Diabetes Past Medical History Comment: gastroparesis Past Surgical History: Yes Surgical History: Appendectomy, , CABG/Valve Surgery - Family History History of Family Medical Conditions: No Family Medical History: Diabetes Mellitus - Social History Does any household member use tobacco: No Do you use any recreational Drugs:: No Lives With: Spouse Lives Where: Home - infectious screening In the last 2 months have you had wt loss of >10#?: NO Have you traveled outside the country in the last 6 months?: No Isolation: Standard ROS - Review of Systems Constitutional: No Symptoms Reported, Weakness, Loss of Appetite. negative: See HPI, Chills, Diaphoresis, Fever, Malaise, Irritable, Fatigue, Other Eyes: No Symptoms Reported ENTM: No Symptoms Reported Respiratoy: No Symptoms Reported. negative: See HPI, Productive Cough, Non- Productive Cough, Moist Cough, Dry Cough, Hacking Cough, Barking Cough, Brassy Cough, Orthopnea, Short of Breath, Stridor, Wheezing, Hemoptysis, Other Cardiovascular: No Symptoms Reported. negative: See HPI, Chest Pain, Edema, Palpitations, Syncope, Cyanosis, Skin Mottling, Other Gastrointestinal/Abdominal: Abdominal Pain, Nausea, Vomiting Genitourinary: No Symptoms Reported. negative: See HPI, Discharge, Dysuria, Frequency, Hematuria, Pain, Bleeding, Other Neurological: No Symptoms Reported Musculoskeletal: No Symptoms Reported Integumentary: No Symptoms Reported Hematologic/Lymphatic: No Symptoms Reported. negative: See HPI, Anemia, Blood Clots, Easy Bleeding, Easy Bruising, Swollen Glands, Lymphadenopathy, Other Endocrine: No Symptoms Reported Psychiatric: No Symptoms Reported. negative: See HPI, Anxiety, Depression, Hallucinations, Excessive crying, Suicidal, Other PE - Vital Signs Vitals: Temperature 98.3 F Pulse Rate 126 Respiratory Rate 20 Blood Pressure [Left Arm] 122/70 Blood Pressure [Right Arm] 120/69 Blood Pressure 133/83 O2 Sat by Pulse Oximetry 94 - General Limitations: No Limitations General Appearance: Alert, In Distress (moderate) - Head Head Exam: Normal Inspection, Atraumatic, Normocephalic - Eyes Eye exam: Normal Appearance, PERRL, EOMI. negative: Scleral Icterus, Conjunctival Injection, Nystagmus, Miosis, Mydrasis, Periorbital Swelling, Periorbital Tenderness, Other - ENT ENT Exam: Normal Exam, Normal Oropharynx, Normal External Ear Exam, Mucous Membranes Moist, TM's Normal Bilaterally - Neck Neck Exam: Normal Inspection, Full ROM, Trachea Midline. negative: Tenderness, Meningismus, Lymphadenopathy, Thyromegaly, Other - Chest Chest Inspection: Normal Inspection, Symmetric Chest Wall Rise. negative: Tenderness, Rash, Abscess, Other - Respiratory Respiratory Exam: Normal Lung Sounds Bilat Respiratory Exam: Bilateral Clear to Auscultation - Cardiovascular Cardiovascular Exam: Regular Rate, Normal Rhythm, Normal Heart Sounds - Abdominal Exam Abdominal Exam: Normal Inspection, Normal Bowel Sounds, Soft, Tenderness ( epigastric tenderness), Guarding, Dimnished Bowel Sounds Abdominal Tenderness: Epigastrium, Moderate - Rectal Rectal Exam: Deferred - External Exam: Female: Deferred : Speculum Exam (Female): Deferred : Bimanual Exam (female): Deferred - Extremities Extremities Exam: Normal Inspection, Full ROM, Normal Capillary Refill. negative: Tenderness, Edema, Joint Swelling, Calf Tenderness, Other - Back Back Exam: Normal Inspection, Full ROM - Neurologic Neurological Exam: Alert, Oriented X3, Reflexes Normal. negative: Normal Gait ( gait not tested) - Psychiatric Psychiatric Exam: Normal Affect, Normal Mood - Skin Skin Exam: Warm, Dry, Intact, Normal Color. negative: Rash, Cyanosis, Diaphoresis, Erythema, Pallor, Mottled, Other ROR - Labs Reviewed Laboratory Results Reviewed?: Yes (all labs and x-ray results reviewed and discussed with patient) Result Diagrams: 03/18/18 01:41 03/18/18 01:41 Laboratory: WBC 9.5 X10^3/uL (3.6-10.0) 03/18/18 01:41 RBC 5.29 X10^6/uL (3.5-5.4) 03/18/18 01:41 Hgb 10.5 g/dL (12.0-16.0) L 03/18/18 01:41 Hct 33.8 % (36.0-47.0) L 03/18/18 01:41 MCV 63.9 fL (80.0-100.0) L 03/18/18 01:41 MCH 19.9 pg (27.0-34.0) L 03/18/18 01:41 MCHC 31.2 g/dL (33.0-35.0) L 03/18/18 01:41 RDW 18.6 % (11.6-16.5) H 03/18/18 01:41 Plt Count 355 X10^3/uL (150.0-450.0) 03/18/18 01:41 Plt Count Comment Adequate (ADEQUATE) 03/18/18 01:41 MPV 8.8 fL (7.4-11.0) 03/18/18 01:41 Neut % (Auto) 94.0 % (42.0-75.0) H 03/18/18 01:41 Lymph % (Auto) 4.0 % (21.0-51.0) L 03/18/18 01:41 [place] % (Auto) 1.2 % (0.0-13.0) 03/18/18 01:41 Eos % (Auto) 0.0 % (0.9-2.9) L 03/18/18 01:41 Baso % (Auto) 0.8 % (0.2-1.0) 03/18/18 01:41 Neut # (Auto) 8.9 x10^3/uL (2.2-4.8) H 03/18/18 01:41 Lymph # (Auto) 0.4 X10^3/uL (1.3-2.9) L 03/18/18 01:41 [place] # (Auto) 0.1 x10^3/uL (0.3-0.8) L 03/18/18 01:41 Eos # (Auto) 0.0 x10^3/uL (0.0-0.2) 03/18/18 01:41 Baso # (Auto) 0.1 X10^3/uL (0.0-0.1) 03/18/18 01:41 Absolute Nucleated RBC 0.0 /100WBC 03/18/18 01:41 Total Counted 100 03/18/18 01:41 Neutrophils % (Manual) 87 % (39-76) H 03/18/18 01:41 Band Neutrophils % 6 % (0-10) 03/18/18 01:41 Lymphocytes % (Manual) 6 % (13-43) L 03/18/18 01:41 Monocytes % (Manual) 1 % (4-9) L 03/18/18 01:41 Plt Morphology Comment Normal (NORMAL) 03/18/18 01:41 RBC Morphology Abnormal (NORMAL) A 03/18/18 01:41 Hypochromasia 3+ A 03/18/18 01:41 Microcytosis 2+ A 03/18/18 01:41 Sodium 138 mmol/L (136-145) 03/18/18 01:41 Corrected Sodium 141 mmol/L (136-145) 03/18/18 01:41 Potassium 3.8 mmol/L (3.5-5.1) 03/18/18 01:41 Chloride 99 mmol/L (98-107) 03/18/18 01:41 Carbon Dioxide 23.7 mmol/L (21-32) 03/18/18 01:41 BUN 15 mg/dL (7-18) 03/18/18 01:41 Creatinine 0.81 mg/dL (0.55-1.02) 03/18/18 01:41 Est GFR (MDRD) Af Amer > 60 (>60) 03/18/18 01:41 Est GFR (MDRD) Non-Af > 60 (>60) 03/18/18 01:41 Glucose 244 mg/dL (65-99) H 03/18/18 01:41 Calcium 9.2 mg/dL (8.5-10.1) 03/18/18 01:41 Corrected Calcium TNP 03/18/18 01:41 Total Bilirubin 1.20 mg/dL (0.2-1.0) H 03/18/18 01:41 AST 12 Units/L (15-37) L 03/18/18 01:41 ALT 23 Units/L (12-78) 03/18/18 01:41 Alkaline Phosphatase 126 Units/L (46-116) H 03/18/18 01:41 Total Protein 8.5 g/dL (6.4-8.2) H 03/18/18 01:41 Albumin 4.5 g/dL (3.4-5.0) 03/18/18 01:41 Globulin 4.0 g/dL (2.5-4.5) 03/18/18 01:41 Albumin/Globulin Ratio 1.1 Ratio (1.1-2.1) 03/18/18 01:41 Amylase 16 Units/L (25-115) L 03/18/18 01:41 Lipase 40 Units/L (73-393) L 03/18/18 01:41 HCG, Qual Negative <10 mIU/mL 03/18/18 01:41 H. pylori IgG Antibody Positive (NEGATIVE) A 03/18/18 01:41 - XRAY XRAY Interpreted by: Radiologist (CT abdomen and pelvis: Esophageal thickening correlate with signs of esophagitis. No other acute abnormality) - Diagnosis Discharge Problem: Abdominal pain, Helicobacter positive gastritis, Esophagitis, Hyperglycemia Diabetes mellitus type I Qualifiers: Diabetes mellitus complication status: with unspecified complications Qualified Code(s): E10.8 - Type 1 diabetes mellitus with unspecified complications - Discharge Plan Disposition: HOME, SELF-CARE Condition: Stable Prescriptions: Lansoprazole/Amoxiciln/Clarith [PrevPac 14-day pack] 1 dose PO BID #1 pkg - Follow ups/Referrals Follow ups/Referrals: LOW WATERMAN [Primary Care Provider] - 3 days - Instructions Instructions: Peptic Ulcer, [id number], Type 1 Diabetes Mellitus, Diagnosis, Adult, Helicobacter Pylori Infection, Abdominal Pain, Adult, [id number], Esophagitis
[2018-03-18] MEDS ORDERED: TORADOL 30 MG VIAL ONE (01:43)
[2018-03-18] MEDS ORDERED: ZOFRAN INJ 4 MG VIAL ONE (01:43)
[2018-03-18] MEDS ORDERED: NS 1000 ML 1,000 ML ONE (01:43)
[2018-03-18 01:52] LABS: BASOPHILS # (AUTO) 0.1 X10^3/uL (0.0-0.1); BASOPHILS % (AUTO) 0.8 % (0.2-1.0); HEMATOCRIT 33.8 % (36.0-47.0); HEMOGLOBIN 10.5 g/dL (12.0-16.0); LYMPHOCYTES # (AUTO) 0.4 X10^3/uL (1.3-2.9); MEAN CORPUSCULAR HEMOGLOBIN 19.9 pg (27.0-34.0); MEAN CORPUSCULAR HGB CONC 31.2 g/dL (33.0-35.0); MEAN CORPUSCULAR VOLUME 63.9 fL (80.0-100.0); MEAN PLATELET VOLUME 8.8 fL (7.4-11.0); MONOCYTES # (AUTO) 0.1 x10^3/uL (0.3-0.8); MONOCYTES % (AUTO) 1.2 % (0.0-13.0); NEUTROPHILS # (AUTO) 8.9 x10^3/uL (2.2-4.8); PLATELET COUNT 355 X10^3/uL (150.0-450.0); RED BLOOD COUNT 5.29 X10^6/uL (3.5-5.4); RED CELL DISTRIBUTION WIDTH 18.6 % (11.6-16.5); WHITE BLOOD COUNT 9.5 X10^3/uL (3.6-10.0)
[2018-03-18 01:59] LABS: SERUM PREGNANCY TEST, QUAL NEGATIVE <10 mIU/mL
[2018-03-18 02:05] LABS: ALANINE AMINOTRANSFERASE 23 Units/L (12-78); ALBUMIN 4.5 g/dL (3.4-5.0); ALKALINE PHOSPHATASE 126 Units/L (46-116); AMYLASE 16 Units/L (25-115); ASPARTATE AMINO TRANSFERASE 12 Units/L (15-37); BLOOD UREA NITROGEN 15 mg/dL (7-18); CALCIUM 9.2 mg/dL (8.5-10.1); CARBON DIOXIDE 23.7 mmol/L (21-32); CHLORIDE 99 mmol/L (98-107); COR NA(FOR HYPERGLY) 141 mmol/L (136-145); CREATININE 0.81 mg/dL (0.55-1.02); LIPASE 40 Units/L (73-393); SODIUM 138 mmol/L (136-145); TOTAL PROTEIN 8.5 g/dL (6.4-8.2); eGFR BLACK RACES > 60 (>60); eGFR NON BLACK RACES > 60 (>60)
[2018-03-18 02:23] LABS: BAND NEUTROPHILS % 6 % (0-10); HYPOCHROMASIA 3+; PLATELET MORPHOLOGY COMMENT NORMAL (NORMAL)
[2018-03-18 02:24] LABS: MICROCYTOSIS 2+
--- NOTE | 2018-03-18 02:42 | CT ---
CT abdomen and pelvis without contrast Indication: Abdominal pain. Technique: Helical images through the abdomen and pelvis without IV contrast. Coronal and sagittal re formats provided. Comparison: 02/20/2018 CT Findings: Limited images through the lower chest shows no acute abnormality. Mild esophageal thickeni ng noted. Review of bone windows shows no new osseous lesion. Abdomen: The liver, gallbladder, spleen, adrenal glands, pancreas, stomach and small bowel are normal . Hyperdense material is again seen in the colon without acute colonic abnormality identified. Append ix is normal. Vasculature is free of calcification. Kidneys are normal without hydroureteronephrosis. There is scarring in the midline. Pelvis: The urinary bladder and rectum are normal. Uterus and adnexa show no acute abnormality. Impression: 1. Esophageal thickening. Correlate clinically with signs of esophagitis and follow-up with EGD. 2. Hyperdense material in the colon. Correlate with prior contrast administration. 3. No other acute abnormality Reported By:
[2018-03-18] MEDS ORDERED: LEVSIN/MAALOX/LIDOC VISC PO ONE (02:55)
[2018-03-18] MEDS ORDERED: BENADRYL INJ 50 MG VIAL IVP STA (02:58)
[2018-03-18] MEDS ORDERED: PHENERGAN INJ 25 MG IM ONE (02:58)
[2018-03-18] MEDS ORDERED: PHENERGAN INJ 25 MG ONE (03:07)
[2018-03-18] MEDS ORDERED: BENADRYL INJ 50 MG VIAL ONE (03:07)
== END 2018-03-18 03:34 | disposition home or self-care (01) ==
LOC: ER 23:21
DX: R10.84 Generalized abdominal pain (principal); B96.81 Helicobacter pylori [H. pylori] as the cause of diseases classified elsewhere; K20.9 Esophagitis, unspecified; R73.9 Hyperglycemia, unspecified; E10.8 Type 1 diabetes mellitus with unspecified complications
CPT/HCPCS: 36415; 74176; 80053; 82150; 83690; 84703; 85025; 86677; 96365; 96367; 96372; 96375; 99283; A4216; J1200; J1885; J2405; J2550